=== PATIENT | male | born 2000 | race Caucasian/White ===

== ENCOUNTER 2022-09-21 18:49 | Emergency (ER) | payer OTHER, SELFPAY ==
[2022-09-21 18:50] VITALS: BP 150/118; PULSE 69; RESP 16; TEMP 36.3; O2SAT 99; BMI 22.0
--- NOTE | 2022-09-21 19:45 | US_ITS ---
STUDY: SCROTUM ULTRASOUND REASON FOR EXAM: Male, 22 years old. Injury. Left scrotal pain. TECHNIQUE: Ultrasound evaluation of the scrotum was performed with color Doppler and static todd-scale imaging. COMPARISON: None. FINDINGS: RIGHT TESTICLE INTRATESTICULAR: There is a normal size of the right testicle. The right testicle measures 4.9 x 3.2 x 2.4 cm. There is a homogenous echotexture. There is normal arterial and normal venous vascularity. There is no demonstrated right testicular mass or cyst. EXTRATESTICULAR: The epididymis is normal in size. The epididymis head measures 0.9 x 0.7 x 0.8 cm. There is normal vascularity of the epididymis. There is no demonstrated epididymal cystic structure. There is no demonstrated hydrocele. There is no demonstrated varicocele. There is no demonstrated extratesticular mass or cyst. LEFT TESTICLE INTRATESTICULAR: There is a mild enlargement of the left testicle when compared to the right. The left testicle measures 5.2 x 3.3 x 2.4 cm. There is a homogenous echotexture. There is normal arterial and normal venous vascularity. There is no demonstrated left testicular mass or cyst. EXTRATESTICULAR: The epididymis is normal in size. The epididymis head measures 1.4 x 0.7 x 0.7 cm. There is normal vascularity of the epididymis. There is no demonstrated epididymal cystic structure. There is a small hydrocele containing debris. There is no demonstrated varicocele. There is no demonstrated extratesticular mass or cyst. US/Testicular with Arterial Flow IMPRESSION: 1. Minimal asymmetry in testicular size without abnormality. 2. Small left hydrocele Electronically Signed: Jaden Dwyer DO at 20:45 EDT Reading Location ID and State: [id number] Tel [phone], Service support ,
--- NOTE | 2022-09-21 19:46 | EX.ED.GUMALE ---
HPI History of Present Illness Chief Complaint: Male Pain/Injury Informant: patient Pain Onset: Month(s) (1) Context: Gradual Onset (L testicle after injury) Timing: Continuous Current Severity: Moderate Maximum Severity: Severe Worsened by: palpation, walking Relieved by: rest Penile Discharge Genital Discharge Amount: None Urinary Symptoms Genitourinary Symptoms: No Symptoms Narrative Narrative: Patient presenting with left testicular pain, at first he did not associated with an injury but remember that soon before the pain, he sustained an injury to his groin during [employer]. The pain has continued to worsen. He denies any trouble urinating or penile pain. The pain radiates up his left lower abdomen a little. Denies any fevers or other symptoms/injuries. He went to urgent care prior and was referred here to the ER. PFSH PFSH Home Medications hydrocodone 7.5 mg-acetaminophen 500 mg/15 mL (15 mL) oral solution 15 ml PO Q6H PRN PRN pain 7 days 09/19/13 [Rx Last Taken Unknown] Allergy/AdvReac Type Severity Reaction Status Date / Time No Known Allergies Allergy Verified 09/21/22 18:52 Social History Smoking Status: Never smoker ROS ROS ED Constitutional Constitutional ED: Denies chills or fever(s) Eyes Eyes: Denies change in vision or diplopia ENT ENT ED: Denies rhinorrhea or sore throat Cardiovascular Cardiovascular: Denies chest pain or palpitations Respiratory/Chest Respiratory/Chest: Denies cough or dyspnea Gastrointestinal Gastrointestinal: Denies abdominal pain, diarrhea, nausea or vomiting Genitourinary Genitourinary ED: Reports scrotal pain; Denies dysuria or hematuria Musculoskeletal Musculoskeletal: Denies back pain or neck pain Integumentary Denies abscess or rash Neurologic Neurologic: Denies headache(s), paresthesias or weakness Psychiatric Psychiatric: Denies anxiety or suicidal thoughts EXAM Physical Exam Const Vital Signs: 09/21/22 18:50 Temperature 97.4 F L Temperature Source Temporal Pulse Rate 69 Respiratory Rate 16 Blood Pressure 150/118 H Blood Pressure Mean 128 Pulse Ox 99 Oxygen Delivery Method Room Air Positive well nourished and well developed General Appearance ED: well developed and NAD HEENT Reports moist mucous membranes normocephalic and atraumatic Eyes PERRL and EOMs intact bilaterally Neck full ROM and supple Resp normal respiratory effort GI non-tender and non-distended Auscultation: normoactive bowel sounds Palpation: soft Narrative: Normal circumcised penis. No hernias evaluated by standing. Tender left testicle at the superior pole, the epididymus is nontender. There is no erythema or significant scrotal edema. The right testicle and scrotum are nontender. Cremasterics intact. Back/Spine General Back: other FROM Extremity normal to inspection General Extremety ED: Negative for edema General Extremity: Negative for edema Neuro oriented x3, CN's II-XII intact bilaterally and no sensory deficits noted Sensorium / Orientation: awake and alert Motor Exam: strength 5/5 throughout Skin no rashes or lesions noted and no wounds MDM MDM MDM Narrative Medical decision making narrative: Ultrasound of the scrotum was obtained and shows no signs of any obvious scrotal or testicular injury. There is a small left hydrocele with some debris in it, it is hard to know if or how this is related to the patient's pain since he has been having discomfort for 1 month and the injury happened that long ago. If his symptoms do not resolve, I would follow-up with urology but there is nothing here to treat with antibiotics or surgery at this time. Radiography Diagnostic Testing: Clinical Impression(s) from Imaging Studies Testicular Ultrasound 09/21/22 19:45 IMPRESSION: 1. Minimal asymmetry in testicular size without abnormality. 2. Small left hydrocele Electronically Signed: Jaden Dwyer DO at 20:45 EDT Reading Location ID and State: [address] [place] [address] Tel [phone], Service support , Discharge Plan Triage Chief Complaint: Male Pain/Injury ED Provider: Sacha Ash Dx/Rx/DC Orders Clinical Impression: Contusion of scrotum, Left hydrocele Instructions: ED Hydrocele Non-Communicating Type, ED Contusion, Testicles or Scrotum Prescriptions: No Action hydrocodone-acetaminophen 15 ML Udc 15 ml PO Q6H PRN PRN (Reason: pain) 7 Days 0RF Primary Care Provider: Care Physician,No Primary Referrals: Juan Francisco Bui MD [Non-Staff] - Maynor Dexter MD [Med Staff - Active Staff] - (2-3 weeks if not improving with ibuprofen/ice as needed) Disposition Disposition: Home, Self Care
[2022-09-21 20:59] VITALS: BP 141/94; PULSE 80; RESP 17; O2SAT 99
== END 2022-09-21 21:00 | disposition home or self-care (01) ==
PROVIDERS: Emergency Provider Emergency Medicine; Visit Provider Emergency Medicine
DX: S30.22XA Contusion of scrotum and testes, initial encounter (principal); N43.3 Hydrocele, unspecified; N50.812 Left testicular pain; Y93.75 Activity, martial arts
CPT/HCPCS: 76870; 93976; 99282

== ENCOUNTER 2023-09-01 07:34 | Emergency (ER) | payer SELFPAY ==
[2023-09-01 07:35] VITALS: BP 166/103; PULSE 83; RESP 14; TEMP 36.4; O2SAT 100; BMI 22.1
--- NOTE | 2023-09-01 07:47 | EX.ED.DYSGE1 ---
HPI History of Present Illness Chief Complaint: Abd Pain Informant: patient Narrative Narrative: 22-year-old male presenting to the emergency room with chief complaint of upper abdominal pain. Patient states that yesterday he was having any upper abdominal discomfort that would radiate to his lower abdomen. He went to urgent care and was given a bottle of magnesium citrate out of concern for constipation. He states that he had a bowel movement and patient has been felt better. He ate brisket and macaroni and cheese for dinner and nothing after that. States he felt fine until he went to bed and lay down when he developed a burning sensation in the upper abdomen. It is nonradiating. It is different than the discomfort he felt yesterday. He denies any vomiting. No fever. Denies any recent abdominal trauma. He notes some mild tenderness when he pushes on his upper abdomen. He denies any metallic or bad taste. He denies any hepatic or pancreatic issues in the past. He denies blood in the stool. PFSH PFSH Medical History no medical history no medical history Home Medications hydrocodone 7.5 mg-acetaminophen 500 mg/15 mL (15 mL) oral solution 15 ml PO Q6H PRN PRN pain 7 days 09/19/13 [Rx Last Taken Unknown] Allergy/AdvReac Type Severity Reaction Status Date / Time No Known Allergies Allergy Verified 09/01/23 07:34 Social History (Updated 09/01/23 @ 07:[address] Enrique Love, DO) Smoking Status: Never smoker substance use type: does not use ROS ROS ED Constitutional Constitutional ED: Denies chills, fever(s) or weight loss Eyes Eyes: Denies change in vision or diplopia ENT ENT ED: Denies ear pain, rhinorrhea or sore throat Cardiovascular Cardiovascular: Denies chest pain, orthopnea, palpitations or racing heartbeat Respiratory/Chest Respiratory/Chest: Denies cough, dyspnea or orthopnea Gastrointestinal Gastrointestinal: Reports abdominal pain and constipation; Denies diarrhea, melena, nausea or vomiting Genitourinary Genitourinary ED: Denies dysuria, hematuria or urinary frequency Musculoskeletal Musculoskeletal: Denies arthralgias or myalgias Integumentary Denies abscess or rash Neurologic Neurologic: Denies headache(s) or weakness Psychiatric Psychiatric: Denies anxiety, depression, suicidal ideation or suicidal thoughts Endocrine Endocrinology: Denies polydipsia, polyphagia or polyuria Allergic/Immunologic Allergic/Immunologic ED: Denies mouth swelling, tongue swelling or urticaria EXAM Physical Exam Const Vital Signs: 09/01/23 07:35 Temperature 97.6 F L Temperature Source Temporal Pulse Rate 83 Respiratory Rate 14 Blood Pressure 166/103 H Blood Pressure Mean 124 Pulse Ox 100 Oxygen Delivery Method Room Air Positive well nourished and well developed General Appearance ED: well developed HEENT Reports normocephalic, head/scalp atraumatic and moist mucous membranes Eyes PERRL and EOMs intact bilaterally Neck no lymphadenopathy, supple and no JVD Resp normal respiratory effort and clear to auscultation bilaterally Cardio regular rate, regular rhythm and no murmurs GI Inspection: Negative for abdominal distention Auscultation: normoactive bowel sounds Palpation: soft and tender epigastric Back/Spine no CVA tenderness and normal ROM Extremity normal to inspection General Extremety ED: Negative for edema General Extremity: Negative for edema Neuro oriented x3 and CN's II-XII intact bilaterally Sensorium / Orientation: alert Motor Exam: strength 5/5 throughout Psych mental status grossly normal Mood & Affect: Negative for depressed or tearful Skin no rashes or lesions noted and no wounds MDM MDM MDM Narrative Medical decision making narrative: White blood cell count is normal at 8.6 with a normal differential. Liver enzymes showed a alk phos while in phosphatase at 127. Normal lipase. Normal transaminases and bilirubin levels. At this point I think the patient can be discharged home. He was given a GI cocktail with some improvement. I would have him take some Maalox or Pepto-Bismol in addition to Pepcid over the next couple days. This should be self-limited. If no improvement would follow-up with primary care Lab Data Attestation: I reviewed the patient's lab results. Labs: Laboratory Results - last 24 hr 09/01/23 08:03 WBC 8.6 RBC 4.93 Hgb 15.2 Hct 44.6 MCV 90.5 MCH 30.8 MCHC 34.1 RDW Std Deviation 39.7 RDW Coeff of Srinivas 12.0 Plt Count 267 MPV 10.4 Immature Gran % (Auto) 0.200 Neut % (Auto) 66.4 Lymph % (Auto) 23.8 [place] % (Auto) 7.8 Eos % (Auto) 0.9 Baso % (Auto) 0.9 Absolute Neuts (auto) 5.7 Absolute Lymphs (auto) 2.05 Nucleated RBC % 0 Sodium 138 Potassium 3.9 Chloride 108 H Carbon Dioxide 25.0 Anion Gap 5 BUN 20 H Creatinine 0.87 Estim Creat Clear Calc 126.52 Est GFR (MDRD) Af Amer 143 Est GFR (MDRD) Non-Af 118 BUN/Creatinine Ratio 23.0 H Glucose 99 Calcium 9.2 Total Bilirubin 0.30 Direct Bilirubin 0.11 AST 26 ALT 44 Alkaline Phosphatase 127 H Total Protein 7.8 Albumin 4.4 Globulin 3.4 Lipase 45 Discharge Plan Triage Chief Complaint: Abd Pain ED Provider: Enrique Love Dx/Rx/DC Orders Clinical Impression: Abdominal pain, acute, Gastritis Instructions: ED Gastritis (Adult) Prescriptions: No Action hydrocodone-acetaminophen 15 ML solution 15 ml PO Q6H PRN PRN (Reason: pain) 7 Days 0RF Primary Care Provider: Care Physician,No Primary Referrals: Mariusz Lim MD [Med Staff - Active Staff] - 3-5 Days if not improving Care Physician,No Primary [Primary Care Provider] - Activity Restrictions/Additional Instructions: I would recommend taking [id number] Maalox or Pepto-Bismol as needed. I would also recommend taking Pepcid over the next 3 to 5 days. If worsening or new symptoms please return to emergency Disposition Disposition: Home, Self Care
[2023-09-01] MEDS: Mag Hydrox/Al Hydrox/Simeth 30 ML UDC PO (08:04)
[2023-09-01 08:15] LABS: Absolute Lymphocyte Count 2.05 X10^3/uL (0.83-4.51); Absolute Neutrophil Count 5.7 X10^3/uL (2.0-7.7); Basophil# 0.08 X10^3/uL; Basophil% 0.9 % (0-1); Eosinophil# 0.08 X10^3/uL; Eosinophils% 0.9 % (0-5); Hematocrit 44.6 % (40-54); Hemoglobin 15.2 g/dL (13.0-16.5); Lymphocyte # 2.05 X10^3/ul (0.83-4.51); Lymphocyte % 23.8 % (19-41); Mean Corp Hgb Conc 34.1 g/dL (32-36); Mean Corpuscular Hgb 30.8 pg (27.0-32.0); Mean Corpuscular Volume 90.5 fL (80-94); Mean Platelet Vol. 10.4 fl (6.2-12.0); Monocyte# 0.67 X10^3/uL; Monocyte% 7.8 % (0-10); NRBC Flagged by Analyzer 0 % (0-5); Neutrophil % 66.4 % (47-70); Platelet Count 267 K/mm3 (150-450); RBC Distribution Width SD 39.7 fl (35.1-43.9); Red Blood Count 4.93 M/mm3 (4.6-6.2); White Blood Count 8.6 K/mm3 (4.4-11.0)
[2023-09-01 08:27] LABS: AST(SGOT) 26 U/L (15-37); Alanine Aminotransfer ALT/SGPT 44 U/L (16-61); Albumin, Serum 4.4 g/dL (3.2-5.0); Alkaline Phosphatase 127 U/L (45-117); Anion Gap 5 (5-15); BUN 20 mg/dL (7-18); Bilirubin, Direct 0.11 mg/dL (0.00-0.30); Calcium,Total 9.2 mg/dL (8.5-10.1); Chloride 108 mmol/L (98-107); Creatinine, Serum 0.87 mg/dL (0.70-1.30); EST Glomerular Filtration Rate 118 mL/min (>60); Est Glom Filt Rate - Afr Amer 143 mL/min (>60); Estimated Creatinine Clearance 126.52 ml/min; Globulin 3.4 g/dL (2.2-4.2); Glucose 99 mg/dL (74-106); Lipase 45 U/L (13-75); Potassium 3.9 mmol/L (3.5-5.1); Protein, Total 7.8 g/dL (6.4-8.2); Sodium Level 138 mmol/L (136-145)
== END 2023-09-01 08:53 | disposition home or self-care (01) ==
PROVIDERS: Emergency Provider Emergency Medicine; Visit Provider Emergency Medicine
DX: K29.70 Gastritis, unspecified, without bleeding (principal)
CPT/HCPCS: 80048; 80076; 83690; 85025; 99284; A4216

== ENCOUNTER 2025-01-21 12:50 | Emergency (ER) | payer OTHER, SELFPAY ==
[2025-01-21 12:52] VITALS: BP 166/99; PULSE 87; RESP 16; TEMP 36.6; O2SAT 99; BMI 25.7
--- NOTE | 2025-01-21 13:19 | EDS_ITS ---
HPI History of Present Illness Chief Complaint: Upper Extremity Injury Informant: patient Narrative Narrative: Patient is a [id number] male presenting with injury to his left fourth finger. This is work-related injury. patient was helping a coworker change the belt on the kaden. He went to turn off the machine and put his left hand on the lug which he normally does to turn off the kaden when his glove got pulled into the machine with his hand. He had injury to left fourth finger. The bone is exposed at the proximal interphalangeal joint. Came in for further evaluation. He can still feel the tip of his finger but states it feels like it is falling asleep. He cannot move his distal finger. Is complain of significant pain at the site. Did receive 50 mcg of fentanyl and route. Tetanus Immunization: Unknown [facility] Medical History (Updated 01/21/25 @ 16:[address] Lia Vargas, DO) ADHD Home Medications ?Medication ?Instructions ?Recorded ?Last Taken ?Type NK 01/21/25 Unknown History Allergy/AdvReac Type Severity Reaction Status Date / Time No Known Allergies Allergy Verified 01/21/25 12:55 Surgical History (Updated 01/21/25 @ 12:57 by Kacie Perdomo) S/P hernia surgery Social History (Updated 01/21/25 @ 12:57 by Kacie Perdomo) household members: none current occupational status: employed Smoking Status: Never smoker substance use type: does not use ROS ROS ED Constitutional Constitutional ED: Denies chills or fever(s) Musculoskeletal Musculoskeletal: Reports other Details: left ring finger pain/deformity Integumentary Reports other Details: wound to left ring finger Neurologic Neurologic: Reports paresthesias LUE (tip of left ring finger ); Denies weakness Hematologic/Lymphatic Hematologic/Lymphatic: Denies easy bleeding or easy bruising EXAM Physical Exam Const Vital Signs: 01/21/25 12:52 Temperature 97.9 F Temperature Source Oral Pulse Rate 87 Respiratory Rate 16 Blood Pressure 166/99 H Blood Pressure Mean 121 Pulse Ox 99 Oxygen Delivery Method Room Air Positive well nourished and well developed General Appearance ED: well developed and NAD HEENT Reports moist mucous membranes normocephalic and atraumatic Chest Wall inspection of chest normal Resp normal respiratory effort and clear to auscultation bilaterally Extremity Extremity Narrative: Deformity of the left ring finger. There is open dislocation of the left finger at the proximal interphalangeal joint. Range of motion distally is reduced. Neuro oriented x3, moves all extremities, no focal motor deficits and no sensory deficits noted Neuro Narrative: Sensation intact to light touch at the distal aspect of the finger but he does report paresthesias. Sensorium / Orientation: alert Psych mental status grossly normal Skin Skin Narrative: Approximately 2 cm thickness laceration with bone protruding through it of the dorsal aspect of the left ring finger along the PIP line MDM MDM MDM Narrative Medical decision making narrative: Patient evaluated for trauma to the left fourth finger. He has an open dislocation of the distal aspect of the proximal phalanges of that finger. Received fentanyl en route and given additional morphine for pain control. Wet-to-dry placed on the open wound. I did discuss with plastic surgery, Dr. Cruz, who is not on-call but is able to provide recommendations. He does recommend the patient be transferred for trauma/hand evaluation and suspect that it will require intraoperative reduction and washout. I spoke with Dr. De Jesus at [facility]. He accepts the patient. Recommends irrigating the wound and covered in a wet-to-dry. Bedside reduction not performed because of concern of increasing risk of infection. Patient given 2 g Ancef in the emergency room. Tetanus is updated. Digital nerve block with bupivacaine applied for further pain control. Patient is much more comfortable after this. This was communicated to excepting surgeon. Discharge Plan Triage Chief Complaint: Upper Extremity Injury ED Provider: Lia Vargas Dx/Rx/DC Orders Clinical Impression: Open dislocation of right ring finger Prescriptions: No Action NK Primary Care Provider: Care Physician,No Primary Referrals: Care Physician,No Primary [Primary Care Provider] - Print Language: Filipino Disposition Disposition: Acute Care Hospital Discharge Location: [facility] Discharge Date/Time: 01/21/25 16:37
[2025-01-21] MEDS: morphine 8 MG/ML Syringe 6 MG IV (13:30)
[2025-01-21] MEDS: Diphth,Pertuss(Acell),Tet Vac 0.5 ML Vial IM (13:31)
--- NOTE | 2025-01-21 13:40 | RAD_ITS ---
PROCEDURE: LEFT RING (4TH) CLOSED FINGER REASON FOR EXAM: INJURY FINGER GOT CAUGHT IN SANDING WHEEL. TECHNIQUE: 3 view(s) of the 4th finger. COMPARISON: None FINDINGS: No visible fracture. Dorsomedial dislocation of the middle phalanx, 4th finger. Soft tissue swelling surrounds the 4th finger. RAD/Finger(s) Min 2 Views IMPRESSION: Dorsomedial dislocation of the middle phalanx of the 4th finger with soft tissu e swelling. No associated fractures are demonstrated. Reading Location: [facility]
[2025-01-21] MEDS: Cefazolin 2 GM in Syringe IV (14:22)
[2025-01-21 16:00] VITALS: BP 135/76; PULSE 85; RESP 18; O2SAT 96
[2025-01-21 16:28] VITALS: BP 135/76; PULSE 85; RESP 18; TEMP 36.7; O2SAT 96
[2025-01-21] MEDS: Morphine 4 MG/ML Syringe IV (16:34)
--- NOTE | 2025-01-21 16:36 | ED.RN ---
This RN called report to [facility].
== END 2025-01-21 16:37 | disposition short-term general hospital (02) ==
LOC: ED 14:05
PROVIDERS: Emergency Provider Emergency Medicine; Referring Provider Emergency Medicine; Visit Provider Emergency Medicine
DX: S63.259A Unspecified dislocation of unspecified finger, initial encounter (principal); W31.2XXA Contact with powered woodworking and forming machines, initial encounter; Y99.0 Civilian activity done for income or pay; Z23 Encounter for immunization
CPT/HCPCS: 73140; 90715; 96365; 96375; 99285

== ENCOUNTER 2025-05-11 03:48 | Emergency (ER) | payer SELFPAY ==
[2025-05-11 03:50] VITALS: BP 155/101; PULSE 76; RESP 16; TEMP 36.8; O2SAT 98; BMI 24.5
--- NOTE | 2025-05-11 04:06 | RAD_ITS ---
PROCEDURE: CHEST PA AND LATERAL 05/11/2025 REASON FOR EXAM: CHEST PAIN, RIGHT SIDE TECHNIQUE: Frontal and lateral views of the chest. COMPARISON: None. FINDINGS: The lungs are expanded. There is no demonstrated parenchymal abnormality. There is no demonstrated pleural abnormality. Normal heart and pericardium. Normal mediastinum and nathalie. Normal visualized pulmonary arteries. Normal visualized aortic arch and descending thoracic aorta. Normal visualized thoracic spine. Normal visualized ribs, clavicles, and shoulders. There is no demonstrated abnormality of the visualized soft tissue structures of the upper abdomen. RAD/Chest PA and Lateral IMPRESSION: No radiographic evidence of an acute abnormality. Reading [facility]
--- NOTE | 2025-05-11 04:06 | EKG12_ITS ---
Test Reason : CP Blood Pressure : */* mmHG Vent. Rate : 62 BPM Atrial Rate : 62 BPM P-R Int : 136 ms QRS Dur : 94 ms QT Int : 376 ms P-R-T Axes : 49 72 37 degrees QTcB Int : 381 ms Normal sinus rhythm with sinus arrhythmia Early repolarization Normal ECG Confirmed by Raf Arellano ([id number]), desk editor KENTON ANGEL ([id number]) on 05/13/2025 6:14:12 AM Referred By: TB Confirmed By: Raf Arellano
[2025-05-11 04:20] LABS: Absolute Lymphocyte Count 2.84 X10^3/uL (0.83-4.51); Absolute Neutrophil Count 4.3 X10^3/uL (2.0-7.7); Basophil# 0.05 X10^3/uL; Basophil% 0.6 % (0-1); Eosinophil# 0.09 X10^3/uL; Eosinophils% 1.1 % (0-5); Hematocrit 39.6 % (40-54); Hemoglobin 13.9 g/dL (13.0-16.5); Lymphocyte # 2.84 X10^3/ul (0.83-4.51); Lymphocyte % 35.5 % (19-41); Mean Corp Hgb Conc 35.1 g/dL (32-36); Mean Corpuscular Hgb 30.1 pg (27.0-32.0); Mean Corpuscular Volume 85.7 fL (80-94); Mean Platelet Vol. 10.5 fl (6.2-12.0); Monocyte# 0.69 X10^3/uL; Monocyte% 8.6 % (0-10); NRBC Flagged by Analyzer 0 % (0-5); Neutrophil % 53.8 % (47-70); Platelet Count 227 K/mm3 (150-450); RBC Distribution Width CV 12.1 % (11.6-14.6); RBC Distribution Width SD 37.3 fl (35.1-43.9); Red Blood Count 4.62 M/mm3 (4.6-6.2)
--- OUTSIDE RECORDS SUMMARY | 2025-05-11 04:46 | XMS RPT_ITS | CCD ---
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 Name Role Phone Unavailable Primary Care Provider UnavailTAVO Mcintyre Referring Unavailable ZACHARY VERONICA Attending Unavailable ZHANG MCDANIEL Unavailable Tavo Vargas Referring Unavailable Tavo Vargas Attending Unavailable Care Physician, No Primary Primary Care Unava ilable Medications Current Medications Medication Drug Class(es) Dates Sig (Normalized) Sig (Original) Acetaminophen / HYDROcodone (2 sources) Opioid Agonist Start: 09-19-2013 take 1 mL by mouth every six hours as needed Hydrocodone-Acet aminophen Active 15 ML PO EVERY 6 HOURS NEEDED September 19, 2013 6:09pm cephalexin 500 mg oral capsule (2 sources) Cephalosporin Antibacterial Start: 01-21-2025 End: 01-31-2025 take 1 capsule by mouth four times daily cephalexin (Keflex) 500 MG capsule Take 1 capsule (500 mg) by mouth 4 times daily for 10 days. 40 capsule 01/21/2025 01/31/2025 Active Completed/Discontinued Medications Medication Drug Class(es) Dates Sig (Normalized) Sig (Original) acetaminophen 325 mg / oxyCODONE hydrochloride 5 mg oral tablet (4 sources) Opioid Agonist Start: 01-21-2025 End: 01-21-2025 2 tablet, Oral, Once, On Mayra 01/21/25 at 2115, For 1 dose, Maximum dose of acetaminophen is 4000 mg from all sources in 24 hours. Start: 01-21-2025 End: 01-21-2025 2 tablet, Oral, Once, On Mayra 01/21/25 at 2115, For 1 dose, Maximum dose of acetaminophen is 4000 mg from all sources in 24 hours. Start: 01-21-2025 End: 01-24-2025 take 1 tablet by mouth every six hours as needed for pain oxyCODONE-acetaminophen (Percocet) 5-325 MG tablet Indications: Open dislocation of finger, initial encounter Take 1 tablet by mouth every 6 hours as needed for severe pain (7-10) for up to 3 days. 12 tablet 01/21/2025 01/24/2025 Active bacitracin 0.5 unt/mg topical ointment (2 sources) Start: 01-21-2025 End: 01-21-2025 apply 1 dose topically three times daily Topical, 3 times daily, First dose on Mayra 01/21/25 at 2100 ceFAZolin 2000 mg injection (2 sources) Cephalosporin Antibacterial Start: 01-21-2025 End: 01-21-2025 take 2000 mg intravenously every eight hours 2,000 mg, IntraVENous, Administer over 30 Minutes, Every 8 hours, First dose on Mayra 01/21/25 at 2000, premix bag, Suspected Indication (Select all that apply): Other, Other Abx Indication: open PIP dislocation 10 ml lidocaine hydrochloride 10 mg/ml injection (2 sources) Antiarrhythmic, Amide Local Anesthetic Start: 01-21-2025 End: 01-21-2025 20 mL, Injection, Once, On Mayra 01/21/25 at 1850, For 1 dose, Deliver to bedside for procedure Problems Problem Classification Problem Date Documented Da te Episodic/Chronic Abdominal pain (1 source) Acute abdominal pain; Translations: [Unspecified abdominal pain] 09-01-2023 Episodic Gastritis and duodenitis (1 source) Gastritis; Translations: [Gastritis, unspecified, without bleeding] 09-01-2023 Episodic Joint disorders and dislocations; trauma-related (4 sources) Open dislocation of finger; Translations: [Unspecified dislocation of unspecified finger, initial encounter] Onset: 01-21-2025 01-21-2025 Episodic Open wounds of extremities (2 sources) Unspecified open wound of unspecified finger without damage to nail, initial encounter; Translations: [Unspecified open wound of unspecified finger without damage to nail, initial encounter] Onset: 01-21-2025 Episodic Other connective tissue disease (1 source) Pain in left finger(s); Translations: [Pain in left finger(s)] Onset: 02-10-2025 Episodic Other male genital disorders (2 sources) Disorder of reproductive system; Translations: [Hydrocele, unspecified] 09-29-2022 Episodic Superficial injury; contusion (2 sources) Contusion of scrotum; Translations: [Contusion of scrotum and testes, initial encounter] 09-29-2022 Episodic Results Test Name Value Interpretation Reference Range Facility Consulton 01-21-2025 Consult Ortho Consult Patient: Juanjo Durham Date of : 2000 Acct: [id number] PCP: No primary care provider on file. Date of Admission: 01/21/2025 Date of Service: Pt seen/examined on 01/21/2025 Chief Complaint: left hand injury History Of Present Illness: This is a 24 y.o. left hand dominant male who presents with a left hand injury which he acquired today at work around noon. Patient states he works [employer]. He endorses a traction mechanism of injury. He initially presented to [facility] where he received a digital block around 3pm. Patient states that prior to this, he was having numbness and tingling in his ring finger similar to carpal tunnel symptoms that he experiences in his right hand. Initial ortho eval occurred around 8pm. Endorses ring and long finger pain. Endorses history of nonoperative right forearm fracture. Denies alcohol, tobacco, and recreational drug use. Patient ambulation status: no difficulty. Antiplatelets/Antico agulation includes: none. 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 Past Surgical History: No past surgical history on file. Home Medications: Prior to Admission medications Not on File Current Hospital Medications: No current facility-administere d medications for this encounter. No current outpatient medications on file. Allergies: Patient has no known allergies. Social History: Social History Socioeconomic History Marital status: Not on file Spouse name: Not on file Number of children: Not on file Years of education: Not on file Highest education level: Not on file Occupational History Not on file Tobacco Use Smoking status: Not on file Smokeless tobacco: Not on file Substance and Sexual Activity Alcohol use: Not on file Drug use: Not on file Sexual activity: Not on file Other Topics Concern Not on file Social History Narrative Not on file Social Drivers of Health Financial Resource Strain: Not on file Food Insecurity: Not on file Transportation Needs: Not on file Physical Activity: Not on file Stress: Not on file Social Connections: Not on file Intimate Partner Violence: Not on file Housing Stability: Not on file Family History: No family history on file. Further Family History is noncontributory to this injury. REVIEW OF SYSTEMS: Review of Systems - General ROS: negative for - chills, fatigue, fever, malaise or night sweats Psychological ROS: negative Ophthalmic ROS: negative ENT ROS: negative for - headaches or sore throat Hematological and Lymphatic ROS: negative for - bleeding problems or blood clots Respiratory ROS: no cough, shortness of breath, or wheezing Cardiovascular ROS: no chest pain or dyspnea on exertion Gastrointestinal ROS: negative Musculoskeletal ROS: See HPI Neurological ROS: negative for - bowel and bladder control changes, gait disturbance or numbness/tingling All other systems reviewed and are negative PHYSICAL EXAM: BP 135/85 Pulse 84 Resp 16 SpO2 96% GENERAL APPEARANCE: Awake and oriented x4. No acute distress, except appropriate to injury. MOOD AND AFFECT: Calm appropriate to situation GAIT AND STATION: Patient is in bed and able to ambulate COORDINATION and BALANCE: Patient is grossly coordinated Lymphadenopathy: none on examination of the affected extremity(s) Right Upper Extremity: -No obvious pain or deformity to inspection with normal joint range of motion, stability, and muscle strength except noted below -No TTP over clavicle, shoulder, humerus, elbow, forearm, wrist, hand, or fingers -TTP: nontender throughout extremity -Radial pulse palpable -SILT in radial/median/ ulnar nerve distributions -Motor + AIN/PIN/ulnar nerve functions -No Lymphedema -Skin intact except where noted below -Painless pROM at shoulder/elbow/wrist 2-point discrimination (mm) RIGHT Hand Thumb Index Long Ring Small r u r u r u r u r u 5 5 5 5 5 5 5 5 5 5 Median Ulnar Atraumatic Left Upper Extremity: -No obvious pain or deformity to inspection with normal joint range of motion, stability, and muscle strength except noted below -No TTP over clavicle, shoulder, humerus, elbow, forearm, wrist, hand -TTP: Fingers -Radial pulse palpable -SILT in radial/median/ ulnar nerve distributions -Motor + AIN/PIN/ulnar nerve functions -No Lymphedema -Skin intact except where noted below -Painless pROM at shoulder/elbow/wrist 2-point discrimination (mm) LEFT Hand Thumb Index Long Ring Small r u r u r u r u r u 5 5 5 5 5 5 absent absent 5 5 Median Ulnar Obvious deformity of the ring finger with 1cm open wound over the volar ulnar PIP joint. The P1 head is visible protruding through this wound. There is no gross contamination. Brisk capillary refill. There is dense numbness throughout the ring finger with absent 2 point sensation. There is swelling about the long (more content not included)... Normal [facility] ED Provider Noteon ED Provider Note EMERGENCY DEPARTMENT ENCOUNTER Pt Name: Juanjo Durham Birthdate 2000 Date of evaluation: 01/21/2025 ED Provider: Zachary Veronica DO CHIEF COMPLAINT Chief Complaint Patient presents with Finger Laceration Pt got hand caught in sand almond grinder and has finger injury to has injury to left ring finger. Pt was seen at [facility] and sent in for care. HISTORY OF PRESENT ILLNESS (Location/Symptom, Timing/Onset, Context/Setting, Quality, Duration, Modifying Factors, Severity) Note limiting factors. I wore appropriate PPE for the entirety of this encounter. HPI Juanjo Durham is a 24 y.o. male who presents to the emergency department open finger dislocation left fourth digit. 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 Initially presented to [facility] who performed x-ray, gave tetanus Ancef and performed a digital nerve block, spoke with Dr. Mcdaniel with Ortho hand who recommended ED to ED transfer. Nursing Notes were reviewed. REVIEW OF SYSTEMS 14 systems reviewed and otherwise acutely negative except as in the [place]. PAST MEDICAL HISTORY No past medical history on file. SURGICAL HISTORY No past surgical history on file. CURRENT MEDICATIONS Discharge Medication List as of 01/21/2025 9:11 PM ALLERGIES Patient has no known allergies. FAMILY HISTORY No family history on file. SOCIAL HISTORY Social History Socioeconomic History Marital status: Single SCREENINGS Umesh Coma Scale Best Eye Response: Spontaneous Best Verbal Response: Oriented Best Motor Response: Follows commands Umesh Coma Scale Score: 15 PHYSICAL EXAM ED Triage Vitals [01/21/25 1803] Temp Heart Rate Resp BP -- 84 16 135/85 SpO2 Temp src Heart Rate Source Patient Position (!) 86 % -- -- -- BP Location FiO2 (%) -- -- CONSTITUTIONAL: AOx4, no apparent distress, appears stated age HEAD: normocephalic, atraumatic EYES: PERRL, EOMI ENT: moist mucous membranes, uvula midline NECK: supple, symmetric BACK: symmetric LUNGS: clear to auscultation bilaterally CARDIOVASCULAR: regular rate and rhythm ABDOMEN: soft, non-tender, non-distended with normal active bowel sounds : deferred NEUROLOGIC: MAEx4, no focal sensory or motor deficits MUSCULOSKELETAL: no clubbing, cyanosis or edema, open dislocation of the left fourth digit PIP joint. Capillary refills intact distally. No sensation however as he received a digital nerve block in the outlying facility, Media Information Document Information SKIN: no exposed rash DIAGNOSTIC RESULTS Procedures/EKG: EKG was reviewed by myself. Physician EKG interpretation can be found in [facility] RADIOLOGY (Per Emergency Physician): Interpretation per the Radiologist below, if available at the time of this note: FL guidance non-resultable joint reduction Final Result XR hand 3+ views left Final Result 1. The fourth finger is dorsally dislocated at the PIP joint level; the middle phalanx base is located along the dorsum of the proximal metacarpal neck. 2. Punctate ossific avulsion along the volar aspect of the third finger PIP joint, of an uncertain chronicity and donor site. Report Dictated on Electronically Signed By: Monroe Hernandez MD Electronically Signed Date/Time: 01/21/2025 6:45 PM EST ED BEDSIDE ULTRASOUND: Performed by ED Physician - none LABS: Labs Reviewed - No data to display All other labs were within normal range or not returned as of this dictation. EMERGENCY DEPARTMENT COURSE and DIFFERENTIAL DIAGNOSIS/MDM: Vitals: Vitals: 01/21/25180201/21/25181201/21/25200401/21/252121 BP: 135/85 127/70 120/78 BP Location: Right arm Patient Position: Sitting Pulse: 84 78 75 Resp: 16 16 16 SpO2: (!) 86% 96% 97% 100% EMERGENCY DEPARTMENT COURSE and DIFFERENTIAL DIAGNOSIS/MDM: Vitals: Vitals: 01/21/25180201/21/25181201/21/25200401/21/252121 BP: 135/85 127/70 120/78 BP Location: Right arm Patient Position: Sitting Pulse: 84 78 75 Resp: 16 16 16 SpO2: (!) 86% 96% 97% 100% The patient presented with a chief complaint of left fourth digit open dislocation. Did not send a disc so x-rays were repeated and orthopedic hand surgery was consulted.. The differential diagnosis associated with this patient's presentation includes left fourth digit open dislocation. Our workup consisted of ordering/reviewing x-ray which again confirmed the open dislocation, questionable third digit fracture as well. Plastic surgery reduced and closed at bedside, recommended Keflex pain control and outpatient follow-up with Dr. Mcdaniel tomorrow.. Diagnoses as of 01/21/252128 Open dislocation of finger, initial encounter Diagnostic tests considered but not performed: External records reviewed: Diagnostics interpreted by me: Xray(s) open dislocation of the left fourth digit, questionable av (more content not included)... Normal [facility] Emergency Department Summary on 01-21-2025 Emergency Department Summary [facility] Medical Records Department [address] [place] [address] Emergency Department Summary 01/21/25 MR#: [id number] Acct: [id number] Name: JUANJO DURHAM Rep #: [id number] : 2000 24 From: Tavo Vargas DO PCP: Care Physician,No Primary Status:DEP ER Location: ED HPI History of Present Illness Chief Complaint: Upper Extremity Injury Informant: patient Narrative Narrative: Patient is a [id number] male presenting with injury to his left fourth finger. This is work-related injury. patient was helping a coworker change the belt on the kaden. He went to turn off the machine and put his left hand on the lug which he normally does to turn off the kaden when his glove got pulled into the machine with his hand. He had injury to left fourth finger. The bone is exposed at the proximal interphalangeal joint. Came in for further evaluation. He can still feel the tip of his finger but states it feels like it is falling asleep. He cannot move his distal finger. Is complain of significant pain at the site. Did receive 50 mcg of fentanyl and route. Tetanus Immunization: Unknown [facility] Medical History (Updated 01/21/25 @ 16:[address] Tavo Vargas, DO) ADHD Home Medications ???Medication ???Instructions ???Recorded ???Last Taken ???Type NK 01/21/25 Unknown History Allergy/AdvReac Type Severity Reaction Status Date / Time No Known Allergies Allergy Verified 01/21/25 12:55 Surgical History (Updated 01/21/25 @ 12:57 by Kacie Perdomo) S/P hernia surgery Social History (Updated 01/21/25 @ 12:57 by Kacie Perdomo) household members: none current occupational status: employed Smoking Status: Never smoker substance use type: does not use ROS ROS ED Constitutional Constitutional ED: Denies chills or fever(s) Musculoskeletal Musculoskeletal: Reports other Details: left ring finger pain/deformity Integumentary Reports other Details: wound to left ring finger Neurologic Neurologic: Reports paresthesias LUE (tip of left ring finger ); Denies weakness Hematologic/Lymphati c Hematologic/Lymphati c: Denies easy bleeding or easy bruising EXAM Physical Exam Const Vital Signs: 01/21/25 12:52 Temperature 97.9 F Temperature Source Oral Pulse Rate 87 Respiratory Rate 16 Blood Pressure 166/99 H Blood Pressure Mean 121 Pulse Ox 99 Oxygen Delivery Method Room Air Positive well nourished and well developed General Appearance ED: well developed and NAD HEENT Reports moist mucous membranes normocephalic and atraumatic Chest Wall inspection of chest normal Resp normal respiratory effort and clear to auscultation bilaterally Extremity Extremity Narrative: Deformity of the left ring finger. There is open dislocation of the left finger at the proximal interphalangeal joint. Range of motion distally is reduced. Neuro oriented x3, moves all extremities, no focal motor deficits and no sensory deficits noted Neuro Narrative: Sensation intact to light touch at the distal aspect of the finger but he does report paresthesias. Sensorium / Orientation: alert Psych mental status grossly normal Skin Skin Narrative: Approximately 2 cm thickness laceration with bone protruding through it of the dorsal aspect of the left ring finger along the PIP line MDM MDM MDM Narrative Medical decision making narrative: Patient evaluated for trauma to the left fourth finger. He has an open dislocation of the distal aspect of the proximal phalanges of that finger. Received fentanyl en route and given additional morphine for pain control. Wet-to-dry placed on the open wound. I did discuss with plastic surgery, Dr. Cruz, who is not on-call but is able to provide recommendations. He does recommend the patient be transferred for trauma/hand evaluation and suspect that it will require intraoperative reduction and washout. I spoke with Dr. De Jesus at [facility]. He accepts the patient. Recommends irrigating the wound and covered in a wet-to-dry. Bedside reduction not performed because of concern of increasing risk of infection. Patient given 2 g Ancef in the emergency room. Tetanus is updated. Digital nerve block with bupivacaine applied for further pain control. Patient is much more comfortable after this. This was communicated to excepting surgeon. Discharge Plan Triage Chief Complaint: Upper Extremity Injury ED Provider: Tavo Vargas Dx/Rx/DC Orders Clinical Impression: Open dislocation of right ring finger Prescriptions: No Action NK Primary Care Provider: Care Physician,No Primary Referrals: Care Physician,No Primary [Primary Care Provider] - Print Language: Belarusian Disposition Disposition: Acute Care Hospital Discharge Location: (more content not included)... Normal [facility] Finger(s) Min 2 Viewson 01-03 0 Finger(s) Min 2 Views [facility] Imaging Services [address] [place], [place] [address] (198) Finger(s) Min 2 Views MR#: [id number] Acct: [id number] Name: JUANJO DURHAM Rep #: [id number] : 2000 M 24 From: Fredy Sanchez MD PCP: Care Physician,No Primary Status: REG ER Study: Finger(s) Min 2 Views Date of Exam: 01/21/25 Exam# [id number] Ordering Dr: Tavo Vargas DO PROCEDURE: LEFT RING (4TH) CLOSED FINGER REASON FOR EXAM: INJURY FINGER GOT CAUGHT IN SANDING WHEEL. TECHNIQUE: 3 view(s) of the 4th finger. COMPARISON: None FINDINGS: No visible fracture. Dorsomedial dislocation of the middle phalanx, 4th finger. Soft tissue swelling surrounds the 4th finger. RAD/Finger(s) Min 2 Views IMPRESSION: Dorsomedial dislocation of the middle phalanx of the 4th finger with soft tissue swelling. No associated fractures are demonstrated. Reading Location: [facility] CC: Dr. 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 The fourth finger is dorsally dislocated at the PIP joint level; the middle phalanx base is located along the dorsum of the proximal metacarpal neck. 2. Punctate ossific avulsion along the volar aspect of the third finger PIP joint, of an uncertain chronicity and donor site. Report Dictated on Electronically Signed By: Monroe Hernandez MD Electronically Signed Date/Time: 01/21/2025 6:45 PM EST [facility] Patient Name: JUANJO [facility]URHAM [facility] 2000 [id number] Exam Date/Time: 01/21/2025 18:36 Procedure: XR HAND 3+ VIEWS LEFT Ordering Provider: VERONICA TYLER Reason For Exam: fx/dislocation 4th digit Left hand CLINICAL INDICATION: Pain TECHNIQUE: Three views of the left hand COMPARISON: None FINDINGS: The fourth finger is dorsally dislocated at the PIP joint level; the middle phalanx base is located along the dorsum of the proximal metacarpal neck. Punctate ossific avulsion along the volar aspect of the third finger PIP joint, of an uncertain chronicity and donor site. No additional fracture or subluxation. The remaining bones are in normal anatomic alignment. No radiopaque foreign body is identified. Normal bone mineral density. [facility] Monroe Hernandez MD - 01/21/2025 Patient Name: JUANJO DURHAM : 2000 Exam Date/Time: 01/21/2025 18:36 Procedure: XR HAND 3+ VIEWS LEFT Ordering Provider: VERONICA TYLER Reason For Exam: fx/dislocation 4th digit Left hand CLINICAL INDICATION: Pain TECHNIQUE: Three views of the left hand COMPARISON: None FINDINGS: The fourth finger is dorsally dislocated at the PIP joint level; the middle phalanx base is located along the dorsum of the proximal metacarpal neck. Punctate ossific avulsion along the volar aspect of the third finger PIP joint, of an uncertain chronicity and donor site. No additional fracture or subluxation. The remaining bones are in normal anatomic alignment. No radiopaque foreign body is identified. Normal bone mineral density. IMPRESSION: 1. The fourth finger is dorsally dislocated at the PIP joint level; the middle phalanx base is located along the dorsum of the proximal metacarpal neck. 2. Punctate ossific avulsion along the volar aspect of the third finger PIP joint, of an uncertain chronicity and donor site. Report Dictated on Electronically Signed By: Monroe Hernandez MD Electronically Signed Date/Time: 01/21/2025 6:45 PM EST [facility] Radiology Study observation (narrative) [facility] alth XR Hand - left 3 ViewsOrdere d By: Monroe Hernandez on 01-21-2025 [facility] Work Phone: Absolute lymphocyte countOrd ered By: Enrique Love on 09-01-2023 Lymphocytes Auto (Unsp spec) [#/Vol] 2.05 10*3/uL 0.83-4.51 [facility] Basophil percentageOrdered B y: Enrique Love on 09-01-2023 Basophils/100 WBC (Bld) 0.9 % 0-1 [facility] Bilirubin [Mass/Vol] 0.30 mg/dL 0.20-1.00 [facility] Comment on above: For patients on eltr ombopag therapy, use of Dimension [place] TBIL is not recommended. Chloride [Moles/Vol] 108 mmol/L 98-107 [facility] Eosinophils/100 WBC (Bld) 0.9 % 0-5 [facility] Glucose [Mass/Vol] 99 mg/dL 74-106 [facility] Neutrophils (Bld) [#/Vol] 5.7 10*3/uL 2.0-7.7 [facility] Neutrophils/100 WBC (Bld) 66.4 % 47-70 [facility] Potassium [Moles/Vol] 3.9 mmol/L 3.5-5.1 [facility] Protein [Mass/Vol] 7.8 g/dL 6.4-8.2 [facility] Sodium [Moles/Vol] 138 mmol/L 136-145 [facility] WBC (Bld) [#/Vol] 8.6 10*3/uL 4.4-11.0 [facility] Blood erythrocytes count (nu mber/volume)Ordered By: Enrique Love on 09-01-2023 RBC (Bld) [#/Vol] 4.93 10*6/uL 4.6-6.2 [facility] Blood hemoglobin measurement (mass/volume)Ordered By: Enrique Love on 09-01-2023 Hemoglobin (Bld) [Mass/Vol] 15.2 g/dL 13.0-16.5 [facility] Blood lymphocytes/100 leukoc ytesOrdered By: Enrique Love on 09-01-2023 Lymphocytes/100 WBC (Bld) 23.8 % 19-41 [facility] Blood monocytes/100 leukocyt esOrdered By: Enrique Love on 09-01-2023 Monocytes/100 WBC (Bld) 7.8 % 0-10 [facility] Blood platelet mean volumeOr dered By: Enrique Love on 09-01-2023 Platelet mean volume (Bld) [Entitic vol] 10.4 fL 6.2-12.0 [facility] Determination of erythrocyte mean corpuscular volume (MCV)Ordered By: Enrique Love on 09-01-2023 MCV (RBC) [Entitic vol] 90.5 fL 80-94 [facility] Direct bilirubinOrdered By: Enrique Love on 09-01-2023 Bilirubin.direct [Mass/Vol] 0.11 mg/dL 0.00-0.30 [facility] Hematocrit Auto (Bld) [Volum e fraction]Ordered By: Enrique Love on 09-01-2023 Hematocrit (Bld) [Volume fraction] 44.6 % 40-54 [facility] - Chemistry and C hemistry - challengeOrdered By: Enrique Love on 09-01-2023 ALP [Catalytic activity/Vol] 127 U/L 45-117 [facility] ALT [Catalytic activity/Vol] 44 U/L 16-61 [facility] CO2 [Moles/Vol] 25.0 mmol/L 21.0-32.0 [facility] Globulin (S) [Mass/Vol] 3.4 g/dL 2.2-4.2 [facility] Lipase [Catalytic activity/Vol] 45 U/L 13-75 [facility] Comment on above: Please note:LIPASE r evised reference range effective 23. New Lipase methodology. Expected to produce lower values than the previous assay method. NEW Reference Range: 13 - 75 U/L Urea nitrogen/Creatinine [Mass ratio] 23.0 mg/mg 10-20 [facility] - Hematology and Cell countsOrdered By: Enrique Love on 09-01-2023 Erythrocyte distribution width (RBC) [Entitic vol] 39.7 fL 35.1-43.9 [facility] Erythrocyte distribution width (RBC) [Ratio] 12.0 % 11.6-14.6 [facility] Immature granulocytes/100 WBC (Bld) 0.200 % 0.0-0.9 [facility] Comment on above: IG% - Immature Granu locytes (promyelocytes, myelocytes and metamyelocytes) > 1% indicates that a LEFT SHIFT is Present. MCH (RBC) [Entitic mass] 30.8 pg 27.0-32.0 [facility] Nucleated RBC/100 WBC (Bld) [Ratio] 0 % 0-5 [facility] MCHC Auto (RBC) [Mass/Vol]Or dered By: Enrique Love on 09-01-2023 MCHC (RBC) [Mass/Vol] 34.1 g/dL 32-36 [facility] No Panel InformationOrdered By: Enrique Love on 09-01-2023 Estimated Creatinine Clearance Calc 126.52 ml/min [facility] Estimated GFR (MDRD) Amer 143 mL/min >60 [facility] Comment on above: GFR Calc Estimated GFR (MDRD) Non-Af Amer 118 mL/min >60 [facility] Comment on above: Non- GFR Calc Platelets bldOrdered By: Rodolfo Love on 09-01-2023 Platelets (Bld) [#/Vol] 267 10*3/uL 150-450 [facility] Serum or plasma albumin sherri urement (mass/volume)Ordered By: Enrique Love on 09-01-2023 Albumin [Mass/Vol] 4.4 g/dL 3.2-5.0 [facility] Serum or plasma calcium sherri urement (mass/volume)Ordered By: Enrique Love on 09-01-2023 Calcium [Mass/Vol] 9.2 mg/dL 8.5-10.1 [facility] Serum or plasma creatinine m easurement (mass/volume)Ordered By: Enrique Love on 09-01-2023 Creatinine [Mass/Vol] 0.87 mg/dL 0.70-1.30 [facility] Comment on above: The validity of the calculated GFR & GFRAA in patients over 70 years has not been determined. Clinical correlation is essential. Serum or plasma urea nitroge n measurement (mass/volume)Ordered By: Enrique Love on 09-01-2023 Urea nitrogen [Mass/Vol] 20 mg/dL 7-18 [facility] Thin prep Papanicolaou smear with manual screeningOrdered By: Enrique Love on 09-01-2023 Thin prep Papanicolaou smear with manual screening 26 U/L 15-37 [facility] Thin prep Papanicolaou smear with manual screening 5 5-15 [facility] COVID PCR, SCREENING [facility] 05-26-2020 CORONAVIRUS 2019,PCR NOT DETECTED Normal Not Detected [facility] Comment on above: Result Comment: This assay is designed to detect the N, ORF1ab and/or S genes of SARS-CoV-2 via nucleic acid amplification. A Negative (NOT DETECTED) result does not preclude 2019-nCoV infection since the adequacy of sample collection and/or low viral burden may result in presence of viral nucleic acids below the clinical sensitivity of this test method. Negative (NOT DETECTED) result should not be used as the sole basis for treatment or other patient management decisions. Rather negative results should be combined with clinical observations, patient history, and epidemiological information to make patient management decisions. Fact sheet for providers: https://www.fda.gov/media/752354/download Fact sheet for patients: https://www.fda.gov/media/518558/download This test has received FDA Emergency Use Authorization (EUA) and has been verified by [facility]). This test is only authorized for the duration of time that circumstances exist to justify the authorization of the emergency use of in vitro diagnostic tests for the detection of SARS-CoV-2 virus and/or diagnosis of COVID-19 infection under section 564(b)(1) of the Act, 21 U.S.C. 360bbb-3(b)(1), unless the authorization is terminated or revoked sooner. [facility] ([facility]) is certified under CLIA-88 as qualified to perform high complexity testing. This tests analytical performance characteristics have been determined by [facility]. Testing is performed at [facility] is located at [address] [place] [address] (CLIA License #[id number], CAP #[id number]). Performed By: #### C VCLA #### [facility] [address] [place] [address] COVID PCR, SCREENING CONGREG ATEon 05-25-2020 Lab Specimen Source Nasal, Nasopharyngeal Normal [facility] Comment on above: Performed By: #### C VCLA #### [facility] [address] [place] [address] Vital Signs Date Time Vital Sign Value Performing Clinician Faci lity 01-21-2025 21:22-0500 Diastolic blood pressure 78 mm[Hg] CURRENT DO Work Phone: [employer] 01-21-2025 21:22-0500 Heart rate 75 /min [employer] Work Phone: [employer] 01-21-2025 21:22-0500 Respiratory rate 16 /min ZacharyTaboola Work Phone: [employer] 01-21-2025 21:22-0500 SaO2% (BldA) [Mass fraction] 100 % [employer] Work Phone: [employer] 01-21-2025 21:22-0500 Systolic blood pressure 120 mm[Hg] [employer] Work Phone: [employer] 09-01-2023 07:35-0400 Body height 172.72 cm [facility] 09-01-2023 07:35-0400 Body mass index (BMI) [Ratio] 22.1 kg/m2 [facility] 09-01-2023 07:35-0400 Body temperature 97.6 [degF] [facility] 09-01-2023 07:35-0400 Body weight 66.04 kg [facility] 09-01-2023 07:35-0400 Diastolic blood pressure 103 mm[Hg] [facility] 09-01-2023 07:35-0400 Heart rate 83 /min [facility] 09-01-2023 07:35-0400 Respiratory rate 14 /min [facility] 09-01-2023 07:35-0400 SaO2% (BldA) [Mass fraction] 100 % [facility] 09-01-2023 07:35-0400 Systolic blood pressure 166 mm[Hg] [facility] 09-21-2022 20:59-0400 Diastolic blood pressure 94 mm[Hg] [facility] Work Phone: 09-21-2022 20:59-0400 Heart rate 80 /min [facility] Work Phone: 09-21-2022 20:59-0400 Respiratory rate 17 /min [facility] Work Phone: 09-21-2022 20:59-0400 SaO2% (BldA) [Mass fraction] 99 % [facility] Work Phone: 09-21-2022 20:59-0400 Systolic blood pressure 141 mm[Hg] [facility] Work Phone: 09-21-2022 18:50-0400 Body height 172.72 cm [facility] Work Phone: 09-21-2022 18:50-0400 Body mass index (BMI) [Ratio] 22 kg/m2 [facility] Work Phone: 09-21-2022 18:50-0400 Body temperature 97.4 [degF] [facility] Work Phone: 09-21-2022 18:50-0400 Body weight 65.77 kg [facility] Work Phone: Encounters Encounter Date Encounter Type Care Provider Facility Start: 01-21-2025 End: 01-21-2025 Emergency department patient visit Zachary Veronica DO Work Phone: [facility] Comment on above: Open dislocation of finger, initial encounter (Primary Dx) Start: 01-21-2025 End: 01-21-2025 Emergency department patient visit Tavo Vargas Facility:[facility] Start: 09-01-2023 End: 09-01-2023 Emergency department patient visit [facility] Work Phone: Start: 09-21-2022 End: 09-21-2022 Emergency department patient visit [facility] Procedures Date Procedure Procedure Detail Performing Clinician Start: 01-21-2025 RF Less than 1 hour Marielle Liu MD Work Phone: Start: 01-21-2025 Radex hand minimum 3 views Zachary Veronica DO Work Phone: Start: 09-21-2022 Ultrasound of scrotu m with Doppler and color flow imaging Plan of Treatment Date Care Activity Detail Author Start: 2077 RSV Immunization for Adults (1 - 1-dose 75+ series) RSV Immunization for Adults (1 - 1-dose 75+ series) [facility] Start: 2052 Zoster Vaccines (1 of 2) Zoster Vaccines (1 of 2) [facility] Start: 08-02-2024 COVID-19 Vaccine ( season) COVID-19 Vaccine ( season) [facility] Start: 08-02-2024 Influenza vaccination Influenza Vaccine (#1) [facility] Start: 07-22-2024 DTaP/Tdap/Td Vaccines (7 - Td or Tdap) DTaP/Tdap/Td Vaccines (7 - Td or Tdap) [facility] Start: 09-01-2023 [facility] Start: 2020 Hepatitis C screening Hepatitis C Screening [facility] Start: 2015 Varicella vaccination Varicella Vaccines (1 of 2 - 13+ 2-dose series) [facility] Start: 2014 Depression Screening Depression Screening [facility] Start: 2002 HIV screening HIV Screening [facility] Patient Education [facility] Work Phone: Patient referral [facility] Work Phone: Immunizations Immunization Date Immunization Notes Care Provider Dona quiñones 01-10-2012 influenza virus vacc ine, unspecified formulation Zachary Veronica DO Work Phone: [facility] Payers Date Payer Category Payer Self-pay [id number] 2025 Self-pay 2025 Private Health Insurance [id number] [place] [id number] Unknown [facility] [id number] Unknown [facility] [id number] Unknown [id number] Social History Date Type Detail Facility Start: 09-21-2022 End: 09-01-2023 Tobacco smoking status NHIS Unknown if ever smoked [facility] Start: 2002 Sex Assigned At Male [facility] Start: 2002 Sex assigned at Not on file [facility] Start: 01-21-2025 Sex Male (finding) [facility] Gender identity Not on file [facility] Discharge instructions 01-21-2025 Discharge Instructions Note Date & Type Note Facility 01-21-2025 Hospital Discharg e instructions Citlaly Liu MD - 01/21/2025 9:03 PM EST Images from the original note were not included. Orthopaedic Surgery Discharge Instructions: -Remain non weight bearing to your left hand - keep your splint clean, dry, and intact. Do not remove it or get it wet or it will fall apart - Activity as tolerated - Ice to reduce pain and swelling. Do not put ice directly on the skin. -Follow-up outpatient with Dr. Lee mitchellorrow, 01/22. The office contact information is provided in your paperwork. -Take medications as prescribed by the hospital doctors documented in this encounter [facility] Emergency department Note 01-21-2025 Zachary Veronica DO - 01/21/2025 5:40 PM EST Note Date & Type Note Facility 01-21-2025 Emergency departm ent Note Images from the original note were not included. EMERGENCY DEPARTMENT ENCOUNTER Pt Name: Juanjo Durham Birthdate 2000 Date of evaluation: 01/21/2025 ED Provider: Zachary Veronica DO CHIEF COMPLAINT Chief Complaint Patient presents with Finger Laceration Pt got hand caught in sand almond grinder and has finger injury to has injury to left ring finger. Pt was seen at [facility] and sent in for care. HISTORY OF PRESENT ILLNESS (Location/Symptom, Timing/Onset, Context/Setting, Quality, Duration, Modifying Factors, Severity) Note limiting factors. I wore appropriate PPE for the entirety of this encounter. HPI Juanjo Durham is a 24 y.o. male who presents to the emergency department open finger dislocation left fourth digit. 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 Initially presented to [facility] who performed x-ray, gave tetanus Ancef and performed a digital nerve block, spoke with Dr. Mcdaniel with Ortho hand who recommended ED to ED transfer. Nursing Notes were reviewed. REVIEW OF SYSTEMS 14 systems reviewed and otherwise acutely negative except as in the [place]. PAST MEDICAL HISTORY No past medical history on file. SURGICAL HISTORY No past surgical history on file. CURRENT MEDICATIONS Discharge Medication List as of 01/21/2025 9:11 PM ALLERGIES Patient has no known allergies. FAMILY HISTORY No family history on file. SOCIAL HISTORY Social History Socioeconomic History Marital status: Single SCREENINGS Umesh Coma Scale Best Eye Response: Spontaneous Best Verbal Response: Oriented Best Motor Response: Follows commands [place] Coma Scale Score: 15 PHYSICAL EXAM ED Triage Vitals [01/21/25 1803] Temp Heart Rate Resp BP -- 84 16 135/85 SpO2 Temp src Heart Rate Source Patient Position (!) 86 % -- -- -- BP Location FiO2 (%) -- -- CONSTITUTIONAL: AOx4, no apparent distress, appears stated age HEAD: normocephalic, atraumatic EYES: PERRL, EOMI ENT: moist mucous membranes, uvula midline NECK: supple, symmetric BACK: symmetric LUNGS: clear to auscultation bilaterally CARDIOVASCULAR: regular rate and rhythm ABDOMEN: soft, non-tender, non-distended with normal active bowel sounds : deferred NEUROLOGIC: MAEx4, no focal sensory or motor deficits MUSCULOSKELETAL: no clubbing, cyanosis or edema, open dislocation of the left fourth digit PIP joint. Capillary refills intact distally. No sensation however as he received a digital nerve block in the outlying facility, Media Information Document Information SKIN: no exposed rash DIAGNOSTIC RESULTS Procedures/EKG: EKG was reviewed by myself. Physician EKG interpretation can be found in [facility] RADIOLOGY (Per Emergency Physician): Interpretation per the Radiologist below, if available at the time of this note: FL guidance non-resultable joint reduction Final Result XR hand 3+ views left Final Result 1. The fourth finger is dorsally dislocated at the PIP joint level; the middle phalanx base is located along the dorsum of the proximal metacarpal neck. 2. Punctate ossific avulsion along the volar aspect of the third finger PIP joint, of an uncertain chronicity and donor site. Report Dictated on Electronically Signed By: Monroe Hernandez MD Electronically Signed Date/Time: 01/21/2025 6:45 PM EST ED BEDSIDE ULTRASOUND: Performed by ED Physician - none LABS: Labs Reviewed - No data to display All other labs were within normal range or not returned as of this dictation. EMERGENCY DEPARTMENT COURSE and DIFFERENTIAL DIAGNOSIS/MDM: Vitals: Vitals: 01/21/25180201/21/25181201/21/25200401/21/252121 BP: 135/85 127/70 120/78 BP Location: Right arm Patient Position: Sitting Pulse: 84 78 75 Resp: 16 16 16 SpO2: (!) 86% 96% 97% 100% EMERGENCY DEPARTMENT COURSE and DIFFERENTIAL DIAGNOSIS/MDM: Vitals: Vitals: 01/21/25180201/21/25181201/21/25200401/21/252121 BP: 135/85 127/70 120/78 BP Location: Right arm Patient Position: Sitting Pulse: 84 78 75 Resp: 16 16 16 SpO2: (!) 86% 96% 97% 100% The patient presented with a chief complaint of left fourth digit open dislocation. Did not send a disc so x-rays were repeated and orthopedic hand surgery was consulted.. The differential diagnosis associated with this patient's presentation includes left fourth digit open dislocation. Our workup consisted of ordering/reviewing x-ray which again confirmed the open dislocation, questionable third digit fracture as well. Plastic surgery reduced and closed at bedside, recommended Keflex pain control and outpatient follow-up with Dr. Mcdaniel tomorrow.. Diagnoses as of 01/21/252128 Open dislocation of finger, initial encounter Diagnostic tests considered but not performed: External records reviewed: Diagnostics interpreted by me: Xray(s) open dislocation of the left fourth digit, questionable avulsion fracture volar aspect of the third PIP Discussions with other clinicians: Adoption Coordinator orthopedic surgery Chronic conditions impacting care: Social determinants of health affecting care: ED Medications managed: Medications bacitracin ointment ( Topical Given 01/21/252000) ceFAZolin in dextrose 4% (Ancef) IVPB 2,000 mg (0 mg IntraVENous Stopped 01/21/252106) lidocaine (Xylocaine) 1 % injection 20 mL (20 mL Injection Given 01/21/252001) oxyCODONE-acetaminophen (Percocet) 5-325 MG per tablet 2 tablet (2 tablets Oral Given 01/21/252113) CONSULTS: None PROCEDURES: Unless otherwise noted below, none Procedures Patients symptoms are consistent with sepsis, severe sepsis, or septic shock (If yes use .sepsiscoremeasure): FINAL IMPRESSION 1. Open dislocation of finger, initial encounter DISPOSITION/PLAN dc PATIENT REFERRED TO: Zhang Mcdaniel MD [address] [facility] [id number] Follow up Call first thing in the morning on 01/22 to schedule an appointment with Dr. Mcdaniel. DISCHARGE MEDICATIONS: Discharge Medication List as of 01/21/2025 9:11 PM START taking these medications Details cephalexin (Keflex) 500 MG capsule Take 1 capsule (500 mg) by mouth 4 times daily for 10 days., Starting Mayra 01/21/2025, Until 01/31/2025, Normal oxyCODONE-acetaminophen (Percocet) 5-325 MG tablet Take 1 tablet by mouth every 6 hours as needed for severe pain (7-10) for up to 3 days., Starting Mayra 01/21/2025, Until 01/24/2025 at 2359, Normal (Comment: Please note this report has been produced using speech recognition software and may contain errors related to that system including errors in grammar, punctuation, and spelling, as well as words and phrases that may be inappropriate. If there are any questions or concerns please feel free to contact the dictating provider for clarification.) Zachary Veronica DO (electronically signed) Emergency Medicine Provider Zachary Veronica DO 01/21/252128 documented in this encounter [facility] Physician Emergency department Note 01-21-2025 Zachary Veronica DO - 01/21/2025 5:40 PM EST Note Date & Type Note Facility 01-21-2025 Physician Emergen cy department Note Images from the original note were not included. EMERGENCY DEPARTMENT ENCOUNTER Pt Name: Juanjo Durham Birthdate 2000 Date of evaluation: 01/21/2025 ED Provider: Zachary Veronica DO CHIEF COMPLAINT Chief Complaint Patient presents with Finger Laceration Pt got hand caught in sand almond grinder and has finger injury to has injury to left ring finger. Pt was seen [facility] and sent in for care. HISTORY OF PRESENT ILLNESS (Location/Symptom, Timing/Onset, Context/Setting, Quality, Duration, Modifying Factors, Severity) Note limiting factors. I wore appropriate PPE for the entirety of this encounter. HPI Juanjo Durham is a 24 y.o. male who presents to the emergency department open finger dislocation left fourth digit. 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 Initially presented to [facility] who performed x-ray, gave tetanus Ancef and performed a digital nerve block, spoke with Dr. Mcdaniel with Ortho hand who recommended ED to ED transfer. Nursing Notes were reviewed. REVIEW OF SYSTEMS 14 systems reviewed and otherwise acutely negative except as in the [place]. PAST MEDICAL HISTORY No past medical history on file. SURGICAL HISTORY No past surgical history on file. CURRENT MEDICATIONS Discharge Medication List as of 01/21/2025 9:11 PM ALLERGIES Patient has no known allergies. FAMILY HISTORY No family history on file. SOCIAL HISTORY Social History Socioeconomic History Marital status: Single SCREENINGS Umesh Coma Scale Best Eye Response: Spontaneous Best Verbal Response: Oriented Best Motor Response: Follows commands [place] Coma Scale Score: 15 PHYSICAL EXAM ED Triage Vitals [01/21/25 1803] Temp Heart Rate Resp BP -- 84 16 135/85 SpO2 Temp src Heart Rate Source Patient Position (!) 86 % -- -- -- BP Location FiO2 (%) -- -- CONSTITUTIONAL: AOx4, no apparent distress, appears stated age HEAD: normocephalic, atraumatic EYES: PERRL, EOMI ENT: moist mucous membranes, uvula midline NECK: supple, symmetric BACK: symmetric LUNGS: clear to auscultation bilaterally CARDIOVASCULAR: regular rate and rhythm ABDOMEN: soft, non-tender, non-distended with normal active bowel sounds : deferred NEUROLOGIC: MAEx4, no focal sensory or motor deficits MUSCULOSKELETAL: no clubbing, cyanosis or edema, open dislocation of the left fourth digit PIP joint. Capillary refills intact distally. No sensation however as he received a digital nerve block in the outlying facility, Media Information Document Information SKIN: no exposed rash DIAGNOSTIC RESULTS Procedures/EKG: EKG was reviewed by myself. Physician EKG interpretation can be found in [facility] RADIOLOGY (Per Emergency Physician): Interpretation per the Radiologist below, if available at the time of this note: FL guidance non-resultable joint reduction Final Result XR hand 3+ views left Final Result 1. The fourth finger is dorsally dislocated at the PIP joint level; the middle phalanx base is located along the dorsum of the proximal metacarpal neck. 2. Punctate ossific avulsion along the volar aspect of the third finger PIP joint, of an uncertain chronicity and donor site. Report Dictated on Electronically Signed By: Monroe Hernandez MD Electronically Signed Date/Time: 01/21/2025 6:45 PM EST ED BEDSIDE ULTRASOUND: Performed by ED Physician - none LABS: Labs Reviewed - No data to display All other labs were within normal range or not returned as of this dictation. EMERGENCY DEPARTMENT COURSE and DIFFERENTIAL DIAGNOSIS/MDM: Vitals: Vitals: 01/21/25 1803 01/21/25 1813 01/21/25200401/21/252121 BP: 135/85 127/70 120/78 BP Location: Right arm Patient Position: Sitting Pulse: 84 78 75 Resp: 16 16 16 SpO2: (!) 86% 96% 97% 100% EMERGENCY DEPARTMENT COURSE and DIFFERENTIAL DIAGNOSIS/MDM: Vitals: Vitals: 01/21/25 1803 01/21/25181201/21/25200401/21/252121 BP: 135/85 127/70 120/78 BP Location: Right arm Patient Position: Sitting Pulse: 84 78 75 Resp: 16 16 16 SpO2: (!) 86% 96% 97% 100% The patient presented with a chief complaint of left fourth digit open dislocation. Did not send a disc so x-rays were repeated and orthopedic hand surgery was consulted.. The differential diagnosis associated with this patient's presentation includes left fourth digit open dislocation. Our workup consisted of ordering/reviewing x-ray which again confirmed the open dislocation, questionable third digit fracture as well. Plastic surgery reduced and closed at bedside, recommended Keflex pain control and outpatient follow-up with Dr. Mcdaniel tomorrow.. Diagnoses as of 01/21/252128 Open dislocation of finger, initial encounter Diagnostic tests considered but not performed: External records reviewed: Diagnostics interpreted by me: Xray(s) open dislocation of the left fourth digit, questionable avulsion fracture volar aspect of the third PIP Discussions with other clinicians: Adoption Coordinator orthopedic surgery Chronic conditions impacting care: Social determinants of health affecting care: ED Medications managed: Medications bacitracin ointment ( Topical Given 01/21/252000) ceFAZolin in dextrose 4% (Ancef) IVPB 2,000 mg (0 mg IntraVENous Stopped 01/21/252106) lidocaine (Xylocaine) 1 % injection 20 mL (20 mL Injection Given 01/21/252001) oxyCODONE-acetaminophen (Percocet) 5-325 MG per tablet 2 tablet (2 tablets Oral Given 01/21/252113) CONSULTS: None PROCEDURES: Unless otherwise noted below, none Procedures Patients symptoms are consistent with sepsis, severe sepsis, or septic shock (If yes use .sepsiscoremeasure): FINAL IMPRESSION 1. Open dislocation of finger, initial encounter DISPOSITION/PLAN dc PATIENT REFERRED TO: Zhang Mcdaniel MD [address] [place] [place] [id number] Follow up Call first thing in the morning on 01/22 to schedule an appointment with Dr. Mcdaniel. DISCHARGE MEDICATIONS: Discharge Medication List as of 01/21/2025 9:11 PM START taking these medications Details cephalexin (Keflex) 500 MG capsule Take 1 capsule (500 mg) by mouth 4 times daily for 10 days., Starting Mayra 01/21/2025, Until 01/31/2025, Normal oxyCODONE-acetaminophen (Percocet) 5-325 MG tablet Take 1 tablet by mouth every 6 hours as needed for severe pain (7-10) for up to 3 days., Starting Mayra 01/21/2025, Until 01/24/2025 at 2359, Normal (Comment: Please note this report has been produced using speech recognition software and may contain errors related to that system including errors in grammar, punctuation, and spelling, as well as words and phrases that may be inappropriate. If there are any questions or concerns please feel free to contact the dictating provider for clarification.) Zachary Veronica DO (electronically signed) Emergency Medicine Provider Zachary Veronica DO 01/21/252128 [facility] Evaluation note Note Date & Type Note Facility Evaluation note No assessment information availa [facility] Work Phone: Evaluation note Note Date & Type Note Facility Evaluation note Diagnosis Open dislocation of finger, initial encounter- Primary documented in this encounter [facility] Discharge instructions Note Date & Type Note [facility] Discharge instructions Additional Instructions I would recommend taking [id number] Maalox or Pepto-Bismol as needed. I would also recommend taking Pepcid over the next 3 to 5 days. If worsening or new symptoms please return to emergency [facility] Work Phone: Summary Purpose Family History No Family History Records FoundNo Family History Records FoundNo Family History Records Found Advance Directives No Advanced Directives Records Found Advance Directive Response Recorded Date/ Time Living Will No September 21 7:57pm Power of Automotive Title Clerk No September 21, 2022 7:57pm Advance Directive Response Recorded Date/ Time Living Will No September 01 3 8:06am Power of Automotive Title Clerk No September 01 023 8:06am Chief Complaint and Reason for Visit Chief Complaint MALE PAIN Chief Complaint STOMACH BURNING Additional Source Comments (unrecognized sect ion and content) No Status Records FoundNo Status Records FoundNo Status Records Found INFORMATION SOURCE (unrecogn ized section and content) DATE CREATED AUTHOR 06/21/2020 [facility] DATE CREATED AUTHOR AUTHOR'S ORGANIZ ATION 01/31/2025 [facility] DATE CREATED AUTHOR AUTHOR'S ORGANIZ ATION 02/12/2025 [facility] Goals (unrecognized section and content) Goals may be documented in a n alternate sectionGoals may be documented in an alternate section Care Teams (unrecognized sec tion and content) Team Status: Active Member Role Status Dates Dr. Juan Francisco Bui MD Family Provider Active No Primary Care Physician Primary Care Provider Active Team Status: Inactive Member Role Status Dates No Primary Care Physician Primary Care Provider Active Dr. Enrique Love , DO Emergency Provider Active Reason for Visit (unrecogniz ed section and content) Reason Comments Finger Laceration Pt got hand caught i n sand almond grinder and has finger injury to has injury to left ring finger. Pt was seen at [facility] and sent in for care. Scheduled Active and Recently Administ ered Medications (unrecognized section and content) Medication Order 01/19/2025 01/20/2025 01/21/2025 bacitracin ointment Topical, 3 times daily, First dose on Mayra 01/21/25 at 2099 2000 (Given - Provid er: Cata Aguilar RN) ceFAZolin in dextrose 4% (Ancef) IVPB 2,000 mg 2,000 mg, IntraVENous, Administer over 30 Minutes, Every 8 hours, First dose on Mayra 01/21/25 at 1999, premix bag, Suspected Indication (Select all that apply): Other, Other Abx Indication: open PIP dislocation 2001 (New Bag - Prov ider: Cata Aguilar RN)2106 (Stopped - Provider: Cata Aguilar RN) lidocaine (Xylocaine) 1 % injection 20 mL (COMPLETED) 20 mL, Injection, Once, On Mayra 01/21/25 at 1850, For 1 dose, Deliver to bedside for procedure 2001 (Given - Provid er: Cata Aguilar RN) oxyCODONE-acetaminophen (Percocet) 5-325 MG per tablet 2 tablet (COMPLETED) 2 tablet, Oral, Once, On Mayra 01/21/25 at 2115, For 1 dose, Maximum dose of acetaminophen is 4000 mg from all sources in 24 hours. 211 (Given - Provid er: Cata Aguilar RN) FOR RECORDS PERTAINING TO PATIENTS WHO ARE OR HAVE BEEN ENROLLED IN A CHEMICAL DEPENDENCY/SUBSTANCEABUSE PROGRAM, SOME INFORMATION MAY BE OMITTED. This clinical summary was aggregated from multiple sources. Caution should be exercised in using it in the provision of clinical care. This summary normalizes information from multiple sources, and as a consequence, information in this document may materially change the coding, format and clinical context of patient data. In addition, data may be omitted in some cases. CLINICAL DECISIONS SHOULD BE BASED ON THE PRIMARY CLINICAL RECORDS. [email or web address] provides no warranty or guarantee of the accuracy or completeness of information in this document.
[2025-05-11 04:47] LABS: AST(SGOT) 25 U/L (<=37); Alanine Aminotransfer ALT/SGPT 28 U/L (<=46); Albumin, Serum 4.5 g/dL (3.5-5.0); Alkaline Phosphatase 99 U/L (40-129); Anion Gap 13 (5-15); BUN 27 mg/dL (4-19); BUN/Creat Ratio 23.1 RATIO (10-20); Bilirubin, Direct 0.19 mg/dL (0.00-0.30); Calcium,Total 9.5 mg/dL (7.6-11.0); Carbon Dioxide 21.5 mmol/L (21.0-32.0); Chloride 102 mmol/L (98-108); Creatinine, Serum 1.18 mg/dL (0.70-1.20); EST Glomerular Filtration Rate 89 (>60); Globulin 2.7 g/dL (2.2-4.2); Glucose 93 mg/dL (70-99); Potassium 3.7 mmol/L (3.3-5.1); Protein, Total 7.2 g/dL (5.9-8.4); Sodium Level 136 mmol/L (133-145); Total Bilirubin 0.39 mg/dL (0.00-1.30)
--- NOTE | 2025-05-11 05:01 | EX.ED.DYSGE1 ---
HPI History of Present Illness Chief Complaint: Chest Other Narrative Narrative: Patient is a 24-year-old male with a past medical history of ADHD who presented to the emergency department for concern of chest discomfort. Patient states that he woke up with a pain/popping sensation in the right side of his chest he was concerned therefore he came here for further evaluation management. He states that he has not had anything this happen before. He states that he works out on a regular basis and does not have worsening chest pain. Patient denies any recent travel history denies any history of blood clots. [facility] Medical History ADHD Home Medications ?Medication ?Instructions ?Recorded ?Last Taken ?Type NK 01/21/25 Unknown History Allergy/AdvReac Type Severity Reaction Status Date / Time No Known Allergies Allergy Verified 05/11/25 03:49 Surgical History S/P hernia surgery Social History household members: none current occupational status: employed Smoking Status: Never smoker substance use type: does not use ROS ROS ED ROS Narrative Constitutional: Denies fevers, chills, headaches Eyes: Denies change in vision double vision blurry vision Cardiovascular: Complains of right-sided chest discomfort as noted above denies palpitations Respiratory: Denies coughing wheezing shortness of breath Abdomen: Denies abdominal pain, nausea vomiting : Denies urinary symptoms Neurological: Denies numbness, weakness, and tingling Musculoskeletal: Denies back pain Skin: Denies any rashes or lesions EXAM Physical Exam Narrative Exam Narrative: General: Patient lying in bed rest comfortably did not appear to be acute distress Head: Atraumatic, normocephalic Eyes: PERRL bilaterally, EOMI bilaterally, no conjunctival injection noted Neck: Soft, supple, trachea midline Cardiovascular: Regular rate and rhythm no murmurs gallops rubs noted Respiratory: Clear to auscultation bilaterally Abdomen: Soft, nondistended, nontender to palpation Extremities: +5/5 strength noted in the bilateral upper and lower extremities Neurological: Patient following commands knew that he was at [facility] year is 2024 Skin: Warm, dry, intact no rashes or lesions noted Const Vital Signs: 05/11/25 03:50 05/11/25 04:06 Temperature 98.3 F Temperature Source Oral Pulse Rate 76 Respiratory Rate 16 Blood Pressure 155/101 H Blood Pressure Mean 119 Pulse Ox 98 Oxygen Delivery Method Room Air Room Air MDM MDM MDM Narrative Medical decision making narrative: Patient is a 24-year-old male who presents to the emergency department the chief complaint of right-sided chest discomfort. On the differential diagnose includes but not limited to pneumothorax, PE however he is low risk based on revised [place] score, anxiety, musculoskeletal strain. Once workup is obtained reviewed he will be reevaluated [place] Score (Revised) for Pulmonary Embolism from [employer] on 05/11/2025 All calculations should be rechecked by clinician prior to use RESULT SUMMARY: 3 points Low risk group: 7-9% incidence of PE from several studies. INPUTS: Age >65 ?> 0 = No Previous DVT or PE ?> 0 = No Surgery (under general anesthesia) or lower limb fracture in past month ?> 0 = No Active malignant condition ?> 0 = No Unilateral lower limb pain ?> 0 = No Hemoptysis ?> 0 = No Heart rate ?> 3 = 75-94 Pain on lower limb palpation and unilateral edema ?> 0 = No Patient CBC reviewed showed no evidence leukocytosis white blood count normal at 8, hemoglobin is 13.9, plate count was noted be 227. Patient sodium is 136, potassium normal at 3.7, creatinine was 1.18. Patient's AST and ALT are 25 and 20 respectively. Patient's EKG showed sinus rhythm with a rate of 62 bpm with evidence of benign early repolarization. Patient chest x-ray reviewed by myself and by radiology showed no acute cardiopulmonary processes. Discussed the results with the patient he would like to go home at this point in time. He was noted to have elevated blood pressure in the emergency department I question him on supplementation with working out and he states that he is taking supplements. He was advised to follow-up with a primary care doctor and keep a close eye on his blood pressure. He was encouraged return with worsening symptoms and concerns. He was advised to rotate Tylenol and ibuprofen [id number] for pain control. He is agreeable this plan all question concerns answered he is discharged home in stable condition. Lab Data Labs: Laboratory Results - last 24 hr 05/11/25 04:14 WBC 8.0 RBC 4.62 Hgb 13.9 Hct 39.6 L MCV 85.7 MCH 30.1 MCHC 35.1 RDW Std Deviation 37.3 RDW Coeff of Srinivas 12.1 Plt Count 227 MPV 10.5 Immature Gran % (Auto) 0.400 Neut % (Auto) 53.8 Lymph % (Auto) 35.5 [place] % (Auto) 8.6 Eos % (Auto) 1.1 Baso % (Auto) 0.6 Absolute Neuts (auto) 4.3 Absolute Lymphs (auto) 2.84 Nucleated RBC % 0 Sodium 136 Potassium 3.7 Chloride 102 Carbon Dioxide 21.5 Anion Gap 13 BUN 27 H Creatinine 1.18 Estim Creat Clear Calc 95.00 Est GFR (MDRD) Non-Af 89 BUN/Creatinine Ratio 23.1 H Glucose 93 Calcium 9.5 Total Bilirubin 0.39 Direct Bilirubin 0.19 AST 25 ALT 28 Alkaline Phosphatase 99 Total Protein 7.2 Albumin 4.5 Globulin 2.7 Radiography Diagnostic Testing: Clinical Impression(s) from Imaging Studies Chest X-Ray 05/11/25 04:06 IMPRESSION: No radiographic evidence of an acute abnormality. Reading Location: [place] [id number] Discharge Plan Triage Chief Complaint: Chest Other ED Provider: Juve Hendrickson Dx/Rx/DC Orders Clinical Impression: Chest pain Prescriptions: No Action NK Primary Care Provider: Care Physician,No Primary Referrals: Care Physician,No Primary [Primary Care Provider] - Adriana Garza Sam, [employer] [[facility]] - Activity Restrictions/Additional Instructions: Follow-up with your doctor that you referred to in the outpatient setting. Keep a close eye on your blood pressure. Return with worsening symptoms any concerns. Your blood work here today did not show any acute findings and your chest x-ray was normal as well. Your EKG was normal. Print Language: Scottish Disposition Disposition: Home, Self Care
[2025-05-11 05:18] VITALS: BP 142/80; PULSE 82; RESP 17; TEMP 36.3; O2SAT 98
== END 2025-05-11 05:18 | disposition home or self-care (01) ==
PROVIDERS: Emergency Provider Emergency Medicine; Visit Provider Emergency Medicine
DX: R07.89 Other chest pain (principal); R03.0 Elevated blood-pressure reading, without diagnosis of hypertension
CPT/HCPCS: 71046; 80048; 80076; 85025; 93005; 99283; A4216

== ENCOUNTER 2025-07-18 18:52 | Emergency (ER) | payer SELFPAY ==
[2025-07-18 18:52] VITALS: BP 135/78; PULSE 114; PULSE 116; RESP 20; TEMP 38.3; O2SAT 99; BMI 24.5
--- OUTSIDE RECORDS SUMMARY | 2025-07-18 20:31 | XMS RPT_ITS | CCD ---
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 Tavo Vargas DO Attending Provider Dr. Tavo Vargas DO Referring Provider Dr. Tavo Vargas DO Emergency Provider Dr. Zachary Hendrickson DO Emergency Provider Tavo Vargas Attending Unavailable Tavo Vargas Referring Unavailable Care Physician, No Primary Primary Care Unava ilable Zachary Hendrickson Attending Unavailable Care Physician, No Primary Primary Care Unava ilable Medications Current Medications Medication Drug Class(es) Dates Sig (Normalized) Sig (Original) cephalexin 500 mg oral capsule (2 sources) Cephalosporin Antibacterial Start: 01-21-2025 End: 01-31-2025 take 1 capsule by mouth four times daily cephalexin (Keflex) 500 MG capsule Take 1 capsule (500 mg) by mouth 4 times daily for 10 days. 40 capsule 01/21/2025 01/31/2025 Active [place] (Nk) (1 source) Start: 01-21-2025 [place] (Nk) Active January 21, 2025 1:00am Completed/Discontinued Medications Medication Drug Class(es) Dates Sig (Normalized) Sig (Original) Acetaminophen / HYDROcodone (3 sources) Opioid Agonist Start: 09-19-2013 End: 01-21-2025 take 1 mL by mouth every six hours as needed for pain Hydrocodone-Acetami nophen 15 ML solution Discontinued 15 mL PO EVERY 6 HOURS NEEDED as needed for pain September 19, 2013 6:09pm January 21, 2025 1:55pm Start: 09-19-2013 take 1 mL by mouth e very six hours as needed Hydrocodone-Acetaminophen Active 15 ML P O EVERY 6 HOURS NEEDED September 19, 2013 6:09pm acetaminophen 325 mg / oxyCODONE hydrochloride 5 [...] dose, Deliver to bedside for procedure Problems Active Problems Problem Classification Problem Date Documented Da te Episodic/Chronic Abdominal pain (2 sources) Acute abdominal pain; Translations: [Unspecified abdominal pain] 09-01-2023 Episodic Gastritis and duodenitis (2 sources) Gastritis; Translations: [Gastritis, unspecified, without bleeding] 09-01-2023 Episodic Joint disorders and dislocations; trauma-related (5 sources) Open dislocation of finger; Translations: [Unspecified dislocation of unspecified finger, initial encounter] Onset: 01-21-2025 01-21-2025 Episodic Nonspecific chest pain (2 sources) Chest pain; Translations: [Chest pain, unspecified] Onset: 05-17-2025 05-11-2025 Episodic Open wounds of extremities (2 sources) Unspecified open wound of unspecified finger without damage to nail, initial encounter; Translations: [Unspecified open wound of unspecified finger without damage to nail, initial encounter] Onset: 01-21-2025 Episodic Other male genital disorders (3 sources) Disorder of reproductive system; Translations: [Hydrocele, unspecified] 09-29-2022 Episodic Superficial injury; contusion (3 sources) Contusion of scrotum; Translations: [Contusion of scrotum and testes, initial encounter] 09-29-2022 Episodic Past or Other Problems Problem Classification Problem Date Documented Da te Episodic/Chronic Other connective tissue disease (1 source) Pain in left finger(s); Translations: [Pain in left finger(s)] Onset: 02-10-2025 Episodic Results Test Name Value Interpretation Reference Range Facility 12 Lead EKGon 05-11-2025 12 Lead EKG [facility] Cardiovascular Services [address] [place] [address] 12 Lead EKG 05/11/25 0428 MR#: [id number] Acct: [id number] Name: JUANJO DURHAM Rep #: [id number] : 2000 24 From: Raf Arellano MD Attending Dr: Status: DEP ER Ordering Dr: Zachary Hendrickson DO Date: 05/11/25 Location: ED Sex: M C Admitted: Test Reason : CP Blood Pressure : */* mmHG Vent. Rate : 62 BPM Atrial Rate : 62 BPM P-R Int : 136 ms QRS Dur : 94 ms QT Int : 376 ms P-R-T Axes : 49 72 37 degrees QTcB Int : 381 ms Normal sinus rhythm with sinus arrhythmia Early repolarization Normal ECG Confirmed by Raf Arellano ([id number]), book editor KENTON ANGEL ([id number]) on 05/13/2025 6:14:12 AM Referred By: TB Confirmed By: Raf Arellano 05/13/25613 Date Raf Arellano MD CC: Dr. Zachary Hendrickson, DO; No Primary Care Physician Signed Normal [facility] Absolute lymphocyte countOrd ered By: Zachary Hendrickson on 05-11-2025 Lymphocytes Auto (Unsp spec) [#/Vol] 2.84 10*3/uL 0.83-4.51 [facility] Absolute neutrophil countOrd ered By: Zachary Hendrickson on 05-11-2025 Neutrophils (Bld) [#/Vol] 4.3 10*3/uL 2.0-7.7 [facility] Anion gap in Serum or Plasma Ordered By: Zachary Hendrickson on 05-11-2025 Anion gap [Moles/Vol] 13 mmol/L 5-15 [facility] Automated lymphocyte count a s percentage of total leukocytesOrdered By: Zachary Hendrickson on 05-11-2025 Lymphocytes/100 WBC Auto (Unsp spec) 35.5 % -41 [facility] BUN/creatinine ratioOrdered By: Zachary Hendrickson on 05-11-2025 Urea nitrogen/Creatinine [Mass ratio] 23.1 mg/mg High - [facility] Basic Metabolic Profile (BMP )on 05-11-2025 BUN/CRE 23.1 RATIO High 09-20 [facility] Comment on above: Performed By: #### L 500.3400, L500.2500 #### [facility] Laboratory [address] [place], [address] Calcium [Mass/Vol] 9.5 mg/dL Normal 7.6-11.0 [facility] Comment on above: Performed By: #### L 500.3400, L500.2500 #### [facility] [address] [place], [address] Chloride [Moles/Vol] 102 mmol/L Normal 98-108 [facility] Comment on above: Performed By: #### L 500.3400, L500.2500 #### [facility] [address] [place], [address] CO2 [Moles/Vol] 21.5 mmol/L Normal 21.0-32.0 [facility] Comment on above: Performed By: #### L 500.3400, L500.2500 #### [facility] [address] [place], [address] Creatinine [Mass/Vol] 1.18 mg/dL Normal 0.70-1.20 [facility] Comment on above: Performed By: #### L 500.3400, L500.2500 #### [facility] [address] [place], [address] ECRCL 95.00 ml/min Normal 50-250 [facility] Comment on above: Performed By: #### L 500.3400, L500.2500 #### [facility] [address] [place], [address] GAP 13 Normal 5-15 [facility] Comment on above: Performed By: #### L 500.3400, L500.2500 #### [facility] [address] [place], [address] GFR/1.73 sq M.predicted among non-blacks MDRD (S/P/Bld) [Vol rate/Area] 89 mL/min/{1.73_m2} Normal >60 [facility] Comment on above: Result Comment: mL/m in/1.73m2 CKD-EPI Creatinine Equation (2020) Performed By: #### L 500.3400, L500.2500 #### [facility] [address] [place], [address] Glucose [Mass/Vol] 93 mg/dL Normal 70-99 [facility] Comment on above: Performed By: #### L 500.3400, L500.2500 #### [facility] [address] [place], [address] Potassium [Moles/Vol] 3.7 mmol/L Normal 3.3-5.1 [facility] Comment on above: Performed By: #### L 500.3400, L500.2500 #### [facility] [address] [place], [address] Sodium [Moles/Vol] 136 mmol/L Normal 133-145 [facility] Comment on above: Performed By: #### L 500.3400, L500.2500 #### [facility] [address] [place], [address] Urea nitrogen [Mass/Vol] 27 mg/dL High 4-19 [facility] Comment on above: Performed By: #### L 500.3400, L500.2500 #### [facility] [address] [place], [address] Basophil percentageOrdered B y: Zachary Hendrickson on 05-11-2025 Basophils/100 WBC (Bld) 0.6 % 0-1 [facility] Bilirubin directOrdered By: Zachary Hendrickson on 05-11-2025 Bilirubin.direct [Mass/Vol] 0.19 mg/dL 0.00-0.30 [facility] Bilirubin, totalOrdered By: Zachary Hendrickson on 05-11-2025 Bilirubin [Mass/Vol] 0.39 mg/dL 0.00-1.30 [facility] CBC W/Diff, Automatedon 05-02-2024 Absolute Lymph 2.84 X10 3/uL Normal 0.83-4.51 [facility] Comment on above: Performed By: #### L 100.0100 #### [facility] [address] [place], [address] Absolute Neut 4.3 X10 3/uL Normal 2.0-7.7 [facility] Comment on above: Performed By: #### L 100.0100 #### [facility] [address] [place], [address] Basophils/100 WBC (Bld) 0.6 % Normal 0-1 [facility] Comment on above: Performed By: #### L 100.0100 #### [facility] [address] [place], [address] Eosinophils/100 WBC (Bld) 1.1 % Normal 0-5 [facility] Comment on above: Performed By: #### L 100.0100 #### [facility] [address] [place], [address] Erythrocyte distribution width (RBC) [Ratio] 12.1 % Normal 11.6-14.6 [facility] Comment on above: Performed By: #### L 100.0100 #### [facility] [address] [place], [address] Hematocrit (Bld) [Volume fraction] 39.6 % Low 40-54 [facility] Comment on above: Performed By: #### L 100.0100 #### [facility] [address] [place], [address] Hemoglobin (Bld) [Mass/Vol] 13.9 g/dL Normal 13.0-16.5 [facility] Comment on above: Performed By: #### L 100.0100 #### [facility] [address] [place], [address] IG% 0.400 Normal 0.0-0.9 [facility] Comment on above: Result Comment: IG% - Immature Granulocytes (promyelocytes, myelocytes and metamyelocytes) > 1% indicates that a LEFT SHIFT is Present. Performed By: #### L 100.0100 #### [facility] [address] [place], [address] Lymphocytes/100 WBC (Bld) 35.5 % Normal 19-41 [facility] Comment on above: Performed By: #### L 100.0100 #### [facility] [address] [place], [address] MCH (RBC) [Entitic mass] 30.1 pg Normal 27.0-32.0 [facility] Comment on above: Performed By: #### L 100.0100 #### [facility] [address] [place], [address] MCHC (RBC) [Mass/Vol] 35.1 g/dL Normal 32-36 [facility] Comment on above: Performed By: #### L 100.0100 #### [facility] [address] [place], [address] MCV (RBC) [Entitic vol] 85.7 fL Normal 80-94 [facility] Comment on above: Performed By: #### L 100.0100 #### [facility] [address] [place], [address] Monocytes/100 WBC (Bld) 8.6 % Normal 0-10 [facility] Comment on above: Performed By: #### L 100.0100 #### [facility] [address] [place], [address] Neutrophils/100 WBC (Bld) 53.8 % Normal 47-70 [facility] Comment on above: Performed By: #### L 100.0100 #### [facility] [address] [place], [address] Nucleated RBC (Bld) [#/Vol] 0 10*3/uL Normal 0-5 [facility] Comment on above: Performed By: #### L 100.0100 #### [facility] [address] [place], [address] Platelet mean volume (Bld) [Entitic vol] 10.5 fL Normal 6.2-12.0 [facility] Comment on above: Performed By: #### L 100.0100 #### [facility] [address] [place], [address] Platelets (Bld) [#/Vol] 227 10*3/uL Normal 150-450 [facility] Comment on above: Performed By: #### L 100.0100 #### [facility] [address] [place], [address] RBC (Bld) [#/Vol] 4.62 10*6/uL Normal 4.6-6.2 [facility] Comment on above: Performed By: #### L 100.0100 #### [facility] [address] [place], [address] RDW SD 37.3 fl Normal 35.1-43.9 [facility] Comment on above: Performed By: #### L 100.0100 #### [facility] [address] [place], [address] WBC (Bld) [#/Vol] 8.0 10*3/uL Normal 4.4-11.0 [facility] Comment on above: Performed By: #### L 100.0100 #### [facility] [address] [place], [address] Carbon dioxide, total [Moles /volume] in Central venous bloodOrdered By: Zachary Hendrickson on 05-11-2025 CO2 [Moles/Vol] 21.5 mmol/L 21.0-32.0 [facility] Chest PA and Lateralon 05-11 Chest PA and Lateral [facility] Imaging Services [address] [place] [address] Chest PA and Lateral MR#: [id number] Acct: [id number] Name: JUANJO DURHAM Rep #: [id number] : 2000 M 24 From: Zackery clark MD PCP: Care Physician,No Primary Status: REG ER Study: Chest PA and Lateral Date of Exam: 05/11/25 Exam# [id number] Ordering Dr: Zachary Hendrickson DO PROCEDURE: CHEST PA AND LATERAL 05/11/2025 REASON FOR EXAM: CHEST PAIN, RIGHT SIDE TECHNIQUE: Frontal and lateral views of the chest. COMPARISON: None. FINDINGS: The lungs are expanded. There is no demonstrated parenchymal abnormality. There is no demonstrated pleural abnormality. Normal heart and pericardium. Normal mediastinum and nathalie. Normal visualized pulmonary arteries. Normal visualized aortic arch and descending thoracic aorta. Normal visualized thoracic spine. Normal visualized ribs, clavicles, and shoulders. There is no demonstrated abnormality of the visualized soft tissue structures of the upper abdomen. RAD/Chest PA and Lateral IMPRESSION: No radiographic evidence of an acute abnormality. Reading Location: [place] [address] CC: Dr. Zachary Hendrickson DO; No Primary Care Physician Gas System Operator: Signed Normal [facility] Chloride assayOrdered By: Salvador Hendrickson on 05-11-2025 Chloride [Moles/Vol] 102 mmol/L 98-108 [facility] Emergency Department Summary on 05-11-2025 Emergency Department Summary [facility] Medical Records Department [address] [place] [address] Emergency Department Summary 05/11/25 MR#: [id number] Acct: [id number] Name: JUANJO DURHAM Rep #: [id number] : 2000 24 From: Zachary Hendrickson DO PCP: Care Physician,No Primary Status:REG ER Location: ED HPI History of Present Illness Chief Complaint: Chest Other Narrative Narrative: Patient is a 24-year-old male with a past medical history of ADHD who presented to the emergency department for concern of chest discomfort. Patient states that he woke up with a pain/popping sensation in the right side of his chest he was concerned therefore he came here for further evaluation management. He states that he has not had anything this happen before. He states that he works out on a regular basis and does not have worsening chest pain. Patient denies any recent travel history denies any history of blood clots. [facility] Medical History ADHD Home Medications ???Medication ???Instructions ???Recorded ???Last Taken ???Type NK 01/21/25 Unknown History Allergy/AdvReac Type Severity Reaction Status Date / Time No Known Allergies Allergy Verified 05/11/25 03:49 Surgical History S/P hernia surgery Social History household members: none current occupational status: employed Smoking Status: Never smoker substance use type: does not use ROS ROS ED ROS Narrative Constitutional: Denies fevers, chills, headaches Eyes: Denies change in vision double vision blurry vision Cardiovascular: Complains of right-sided chest discomfort as noted above denies palpitations Respiratory: Denies coughing wheezing shortness of breath Abdomen: Denies abdominal pain, nausea vomiting : Denies urinary symptoms Neurological: Denies numbness, weakness, and tingling Musculoskeletal: Denies back pain Skin: Denies any rashes or lesions EXAM Physical Exam Narrative Exam Narrative: General: Patient lying in bed rest comfortably did not appear to be acute distress Head: Atraumatic, normocephalic Eyes: PERRL bilaterally, EOMI bilaterally, no conjunctival injection noted Neck: Soft, supple, trachea midline Cardiovascular: Regular rate and rhythm no murmurs gallops rubs noted Respiratory: Clear to auscultation bilaterally Abdomen: Soft, nondistended, nontender to palpation Extremities: +5/5 strength noted in the bilateral upper and lower extremities Neurological: Patient following commands knew that he was at [facility] year is 2024 Skin: Warm, dry, intact no rashes or lesions noted Const Vital Signs: 05/11/25 03:50 05/11/25 04:06 Temperature 98.3 F Temperature Source Oral Pulse Rate 76 Respiratory Rate 16 Blood Pressure 155/101 H Blood Pressure Mean 119 Pulse Ox 98 Oxygen Delivery Method Room Air Room Air MDM MDM MDM Narrative Medical decision making narrative: Patient is a 24-year-old male who presents to the emergency department the chief complaint of right- sided chest discomfort. On the differential diagnose includes but not limited to pneumothorax, PE however he is low risk based on revised Schley score, anxiety, musculoskeletal strain. Once workup is obtained reviewed he will be reevaluated Schley Score (Revised) for Pulmonary Embolism from [employer] on 05/11/2025 All calculations should be rechecked by clinician prior to use RESULT SUMMARY: 3 points Low risk group: 7-9% incidence of PE from several studies. INPUTS: Age >65 ???> 0 = No Previous DVT or PE ???> 0 = No Surgery (under general anesthesia) or lower limb fracture in past month ???> 0 = No Active malignant condition ???> 0 = No Unilateral lower limb pain ???> 0 = No Hemoptysis ???> 0 = No Heart rate ???> 3 = 75-94 Pain on lower limb palpation and unilateral edema ???> 0 = No Patient CBC reviewed showed no evidence leukocytosis white blood count normal at 8, hemoglobin is 13.9, plate count was noted be 227. Patient sodium is 136, potassium normal at 3.7, creatinine was 1.18. Patient's AST and ALT are 25 and 20 respectively. Patient's EKG showed sinus rhythm with a rate of 62 bpm with evidence of benign early repolarization. Patient chest x-ray reviewed by myself and by radiology showed no acute cardiopulmonary processes. Discussed the results with the patient he would like to go home at this point in time. He was noted to have elevated blood pressure in the emergency department I question him on supplementation with working out and he states that he is taking supplements. He was advised to follow-up with a primary care doctor and keep a close eye on his blood pressure. He was encouraged retur (more content not included)... Normal [facility] Eosinophil percentageOrdered By: Zachary Hendrickson on 05-11-2025 Eosinophils/100 WBC (Bld) 1.1 % 0-5 [facility] Erythrocyte distribution wid th ratioOrdered By: Zachary Hendrickson on 05-11-2025 Erythrocyte distribution width (RBC) [Ratio] 12.1 % 11.6-14.6 [facility] Erythrocyte distribution wid th standard deviationOrdered By: Zachary Hendrickson on 05-11-2025 Erythrocyte distribution width (RBC) [Ratio] 37.3 fl 35.1-43.9 [facility] Glomerular filtration rate ( GFR) estimation/1.73 sq m using serum, plasma, or whole bOrdered By: Zachary Hendrickson on 05-11-2025 GFR/1.73 sq M.predicted among non-blacks MDRD (S/P/Bld) [Vol rate/Area] 89 mL/min/{1.73_m2} >60 [facility] Comment on above: mL/min/1.73m2 CKD-EP I Creatinine Equation (2020) Hematocrit Auto (Bld) [Volum e fraction]Ordered By: Zachary Hendrickson on 05-11-2025 Hematocrit (Bld) [Volume fraction] 39.6 % Low 40-54 [facility] Hemoglobin measurementOrdere d By: Zachary Hendrickson on 05-11-2025 Hemoglobin (Bld) [Mass/Vol] 13.9 g/dL 13.0-16.5 [facility] Immature granulocytes/100 WB C Auto (Bld)Ordered By: Zachary Hendrickson on 05-11-2025 Immature granulocytes/100 WBC (Bld) 0.400 % 0.0-0.9 [facility] Comment on above: IG% - Immature Granu locytes (promyelocytes, myelocytes and metamyelocytes) > 1% indicates that a LEFT SHIFT is Present. Laboratory - Chemistry and C hemistry - challengeOrdered By: Zachary Hendrickson on 05-11-2025 AST [Catalytic activity/Vol] 25 U/L <38 [facility] Liver Profileon 05-11-2025 Albumin [Mass/Vol] 4.5 g/dL Normal 3.5-5.0 [facility] Comment on above: Performed By: #### L 500.3400, L500.2500 #### [facility] Laboratory [address] [place], [address] ALK PHOS 99 U/L Normal 40-129 [facility] Comment on above: Performed By: #### L 500.3400, L500.2500 #### [facility] [address] [place], [address] ALT [Catalytic activity/Vol] 28 U/L Normal <=46 [facility] Comment on above: Performed By: #### L 500.3400, L500.2500 #### [facility] [address] [place], [address] AST [Catalytic activity/Vol] 25 U/L Normal <=37 [facility] Comment on above: Performed By: #### L 500.3400, L500.2500 #### [facility] [address] [place], [address] Bilirubin [Mass/Vol] 0.39 mg/dL Normal 0.00-1.30 [facility] Comment on above: Performed By: #### L 500.3400, L500.2500 #### [facility] [address] [place], [address] Bilirubin.direct [Mass/Vol] 0.19 mg/dL Normal 0.00-0.30 [facility] Comment on above: Performed By: #### L 500.3400, L500.2500 #### [facility] [address] [place], [address] Globulin (S) [Mass/Vol] 2.7 g/dL Normal 2.2-4.2 [facility] Comment on above: Performed By: #### L 500.3400, L500.2500 #### [facility] [address] [place], [address] T PROT 7.2 g/dL Normal 5.9-8.4 [facility] Comment on above: Performed By: #### L 500.3400, L500.2500 #### [facility] [address] [place], [address] MCV (mean corpuscular volume ) determinationOrdered By: Zachary Hendrickson on 05-11-2025 MCV (RBC) [Entitic vol] 85.7 fL 80-94 [facility] Mean corpuscular hemoglobin (MCH) determinationOrdered By: Zachary Hendrickson on 05-11-2025 MCH (RBC) [Entitic mass] 30.1 pg 27.0-32.0 [facility] Mean corpuscular hemoglobin concentration (MCHC) determinationOrdered By: Zachary Hendrickson on 05-11-2025 MCHC (RBC) [Mass/Vol] 35.1 g/dL 32-36 [facility] Mean platelet volume determi nationOrdered By: Zachary Hendrickson on 05-11-2025 Platelet mean volume (Bld) [Entitic vol] 10.5 fL 6.2-12.0 [facility] Monocyte percentageOrdered B y: Zachary Hendrickson on 05-11-2025 Monocytes/100 WBC (Bld) 8.6 % 0-10 [facility] Neutrophil percentageOrdered By: Zachary Hendrickson on 05-11-2025 Neutrophils/100 WBC (Bld) 53.8 % 47-70 [facility] Nucleated red blood cell per centageOrdered By: Zachary Hendrickson on 05-11-2025 Nucleated RBC/100 WBC (Bld) [Ratio] 0 % 0-5 [facility] Platelet countOrdered By: Salvador Hendrickson on 05-11-2025 Platelets (Bld) [#/Vol] 227 10*3/uL 150-450 [facility] Potassium measurement (mass/ volume)Ordered By: Zachary Hendrickson on 05-11-2025 Potassium (Unsp spec) [Mass/Vol] 3.7 mmol/L 3.3-5.1 [facility] RBC Auto (Bld) [#/Vol]Ordere d By: Zachary Hendrickson on 05-11-2025 RBC (Bld) [#/Vol] 4.62 10*6/uL 4.6-6.2 [facility] Serum creatinine measurement (mass/volume)Ordered By: Zachary Hendrickson on 05-11-2025 Creatinine [Mass/Vol] 1.18 mg/dL 0.70-1.20 [facility] Serum globulin measurementOr dered By: Zachary Hendrickson on 05-11-2025 Globulin (S) [Mass/Vol] 2.7 g/dL 2.2-4.2 [facility] Serum glucose measurement (m ass/volume)Ordered By: Zachary Hendrickson on 05-11-2025 Glucose [Mass/Vol] 93 mg/dL 70-99 [facility] Serum or plasma alanine cook otransferase (ALT) measurementOrdered By: Zachary Hendrickson on 05-11-2025 ALT [Catalytic activity/Vol] 28 U/L <47 [facility] Serum or plasma albumin sherri urement (mass/volume)Ordered By: Zachary Hendrickson on 05-11-2025 Albumin [Mass/Vol] 4.5 g/dL 3.5-5.0 [facility] Serum or plasma alkaline brian sphatase measurementOrdered By: Zachary Hendrickson on 05-11-2025 ALP [Catalytic activity/Vol] 99 U/L 40-129 [facility] Serum or plasma calcium sherri urement (mass/volume)Ordered By: Zachary Hendrickson on 05-11-2025 Calcium [Mass/Vol] 9.5 mg/dL 7.6-11.0 [facility] Serum or plasma urea nitroge n measurement (mass/volume)Ordered By: Zachary Hendrickson on 05-11-2025 Urea nitrogen [Mass/Vol] 27 mg/dL High 4-19 [facility] Sodium levelOrdered By: Sera Hendrickson on 05-11-2025 Sodium [Moles/Vol] 136 mmol/L 133-145 [facility] Total proteinOrdered By: Genesis Hendrickson on 05-11-2025 Protein [Mass/Vol] 7.2 g/dL 5.9-8.4 [facility] White blood cell (WBC) count Ordered By: Zachary Hendrickson on 05-11-2025 WBC (Bld) [#/Vol] 8.0 10*3/uL 4.4-11.0 [facility] Consulton 01-21-2025 Consult Ortho Consult Patient: Juanjo Durham Date of : 2000 Acct: [id number] PCP: No primary care provider on file. Date of Admission: 01/21/2025 Date of Service: Pt seen/examined on 01/21/2025 Chief Complaint: left hand injury History Of Present Illness: This is a 24 y.o. left hand dominant male who presents with a left hand injury which he acquired today at work around noon. 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 He endorses a traction mechanism of injury. He initially presented to [facility] where he received a digital block [...] drug use. Patient ambulation status: no difficulty. Antiplatelets/Antic oagulation includes: none. Profession/Employme nt: [employer] Past Medical History: No past medical history on file. Past Surgical History: No past surgical history on file. Home Medications: Prior to Admission medications Not on File Current Hospital Medications: No current facility-administer ed medications for this encounter. No current outpatient [...] except where noted below -Painless pROM at shoulder/elbow/wris t 2-point discrimination (mm) RIGHT Hand Thumb Index [...] except where noted below -Painless pROM at shoulder/elbow/wris t 2-point discrimination (mm) LEFT Hand Thumb Index [...] the long (more content not included)... 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 Pt was seen at [facility] and sent in for care. HISTORY OF [...] caught on a knot. Initially presented to [facility] who performed x-ray, gave tetanus Ancef and performed a digital nerve block, spoke with Dr. Mcdaniel with Ortho hand who recommended ED to ED transfer. Nursing Notes were reviewed. REVIEW OF SYSTEMS 14 systems reviewed and otherwise acutely negative except as in the [facility]. PAST MEDICAL HISTORY No past medical history on file. SURGICAL HISTORY No past surgical history on file. CURRENT MEDICATIONS Discharge Medication List as of 01/21/2025 9:11 PM ALLERGIES Patient has no known allergies. FAMILY HISTORY No family history on file. SOCIAL HISTORY Social History Socioeconomic History Marital status: Single SCREENINGS [place] Coma Scale Best Eye Response: Spontaneous Best Verbal Response: Oriented Best Motor Response: Follows commands [place] Coma Scale Score: 15 PHYSICAL EXAM ED [...] questionable av (more content not included)... Normal [facility] Emergency Department Summary on 01-21-2025 Emergency Department Summary [facility] Medical Records Department [address] [place] [address] Emergency Department Summary 01/21/25 MR#: [id number] Acct: [id number] Name: JUANJO DURHAM Rep #: [id number] : 2000 24 From: Tavo Vargas DO PCP: Care Physician,No Primary Status:DEP ER Location: ED HPI History of Present Illness Chief Complaint: Upper Extremity Injury Informant: patient Narrative Narrative: Patient is a [id number] male presenting with injury to his left [...] of fentanyl and route. Tetanus Immunization: Unknown [facility] Medical History (Updated 01/21/25 @ 16:[address] Tavo Vargas, ) ADHD Home Medications ???Medication ???Instructions ???Recorded ???Last [...] of left ring finger ); Denies weakness Hematologic/Lymphat ic Hematologic/Lymphat ic: Denies easy bleeding or easy bruising EXAM [...] Primary [Primary Care Provider] - Print Language: Palauan Disposition Disposition: Acute Care Hospital Discharge Location: (more content not included)... Normal [facility] Finger(s) Min 2 [facility] 01-03 Finger(s) Min 2 Views [facility] Imaging Services [address] [address] Finger(s) Min 2 Views MR#: [id number] Acct: [id number] Name: JUANJO DURHAM Rep #: [id number] : 2000 M 24 From: Fredy Sanchez MD PCP: Care Physician,No Primary Status: REG ER Study: Finger(s) Min 2 Views Date of Exam: 01/21/25 Exam# [id number] Ordering Dr: Tavo Vargas DO PROCEDURE: LEFT [...] Tavo Vargas DO; No Primary Care Physician Gas System Operator: Signed Normal [facility] XR Hand - left 3 Viewson 1. [...] MD Electronically Signed Date/Time: 01/21/2025 6:45 PM [facility] RADIOLOGY SYSTEM Patient Name: JUANJO DURHAM : 2000 Exam [...] body is identified. Normal bone mineral density. [facility] RADIOLOGY SYSTEM Monroe Hernandez MD - 01/21/2025 Patient Name: [...] Electronically Signed Date/Time: 01/21/2025 6:45 PM EST [facility] Radiology Study observation (narrative) [facility] alth XR Hand - left 3 ViewsOrdere d By: Monroe Hernandez on 01-21-2025 [facility] [employer] Work Phone: Absolute lymphocyte countOrd ered By: Enrique Love on 09-01-2023 Lymphocytes Auto (Unsp spec) [#/Vol] 2.05 10*3/uL 0.83-4.51 [facility] Basophil percentageOrdered B y: Enrique Love on 09-01-2023 Basophils/100 WBC (Bld) 0.9 % 0-1 [facility] Bilirubin [Mass/Vol] 0.30 mg/dL 0.20-1.00 [facility] Comment on above: For patients on eltr ombopag therapy, use of Dimension [place] TBIL is not recommended. Chloride [Moles/Vol] 108 mmol/L 98-107 [facility] Eosinophils/100 WBC (Bld) 0.9 % 0-5 [facility] Glucose [Mass/Vol] 99 mg/dL 74-106 [facility] Neutrophils (Bld) [#/Vol] 5.7 10*3/uL 2.0-7.7 [facility] Neutrophils/100 WBC (Bld) 66.4 % 47-70 [facility] Potassium [Moles/Vol] 3.9 mmol/L 3.5-5.1 [facility] Protein [Mass/Vol] 7.8 g/dL 6.4-8.2 [facility] Sodium [Moles/Vol] 138 mmol/L 136-145 [facility] WBC (Bld) [#/Vol] 8.6 10*3/uL 4.4-11.0 [facility] Blood erythrocytes count (nu mber/volume)Ordered By: Enrique Love on 09-01-2023 RBC (Bld) [#/Vol] 4.93 10*6/uL 4.6-6.2 [facility] Blood hemoglobin measurement (mass/volume)Ordered By: Enrique Love on 09-01-2023 Hemoglobin (Bld) [Mass/Vol] 15.2 g/dL 13.0-16.5 [facility] Blood lymphocytes/100 leukoc ytesOrdered By: Enrique Love on 09-01-2023 Lymphocytes/100 WBC (Bld) 23.8 % 19-41 [facility] Blood monocytes/100 leukocyt esOrdered By: Enrique Love on 09-01-2023 Monocytes/100 WBC (Bld) 7.8 % 0-10 [facility] Blood platelet mean volumeOr dered By: Enrique Love on 09-01-2023 Platelet mean volume (Bld) [Entitic vol] 10.4 fL 6.2-12.0 [facility] Determination of erythrocyte mean corpuscular volume (MCV)Ordered By: Enrique Love on 09-01-2023 MCV (RBC) [Entitic vol] 90.5 fL 80-94 [facility] Direct bilirubinOrdered By: Enrique Love on 09-01-2023 Bilirubin.direct [Mass/Vol] 0.11 mg/dL 0.00-0.30 [facility] Hematocrit Auto (Bld) [Volum e fraction]Ordered By: Enrique Love on 09-01-2023 Hematocrit (Bld) [Volume fraction] 44.6 % 40-54 [facility] Laboratory - Chemistry and C hemistry - challengeOrdered By: Enrique Love on 09-01-2023 ALP [Catalytic activity/Vol] 127 U/L 45-117 [facility] ALT [Catalytic activity/Vol] 44 U/L 16-61 [facility] CO2 [Moles/Vol] 25.0 mmol/L 21.0-32.0 [facility] Globulin (S) [Mass/Vol] 3.4 g/dL 2.2-4.2 [facility] Lipase [Catalytic activity/Vol] 45 U/L 13-75 [facility] Comment on above: Please note:LIPASE r evised reference range effective 23. New Lipase methodology. Expected to produce lower values than the previous assay method. NEW Reference Range: 13 - 75 U/L Urea nitrogen/Creatinine [Mass ratio] 23.0 mg/mg 10-20 [facility] Laboratory - Hematology and Cell countsOrdered By: Enrique Love on 09-01-2023 Erythrocyte distribution width (RBC) [Entitic vol] 39.7 fL 35.1-43.9 [facility] Erythrocyte distribution width (RBC) [Ratio] 12.0 % 11.6-14.6 [facility] Immature granulocytes/100 WBC (Bld) 0.200 % 0.0-0.9 [facility] Comment on above: IG% - Immature Granu locytes (promyelocytes, myelocytes and metamyelocytes) > 1% indicates that a LEFT SHIFT is Present. MCH (RBC) [Entitic mass] 30.8 pg 27.0-32.0 [facility] Nucleated RBC/100 WBC (Bld) [Ratio] 0 % 0-5 [facility] MCHC Auto (RBC) [Mass/Vol]Or dered By: Enrique Love on 09-01-2023 MCHC (RBC) [Mass/Vol] 34.1 g/dL 32-36 [facility] No Panel InformationOrdered By: Enrique Love on 09-01-2023 Estimated Creatinine Clearance Calc 126.52 ml/min [facility] Estimated GFR (MDRD) Amer 143 mL/min >60 [facility] Comment on above: GFR Calc Estimated GFR (MDRD) Non-Af Amer 118 mL/min >60 [facility] Comment on above: Non- GFR Calc Platelets bldOrdered By: Rodolfo Love on 09-01-2023 Platelets (Bld) [#/Vol] 267 10*3/uL 150-450 [facility] Serum or plasma albumin sherri urement (mass/volume)Ordered By: Enrique Love on 09-01-2023 Albumin [Mass/Vol] 4.4 g/dL 3.2-5.0 [facility] Serum or plasma calcium sherri urement (mass/volume)Ordered By: Enrique Love on 09-01-2023 Calcium [Mass/Vol] 9.2 mg/dL 8.5-10.1 [facility] Serum or plasma creatinine m easurement (mass/volume)Ordered By: Enrique Love on 09-01-2023 Creatinine [Mass/Vol] 0.87 mg/dL 0.70-1.30 [facility] Comment on above: The validity of the calculated GFR & GFRAA in patients over 70 years has not been determined. Clinical correlation is essential. Serum or plasma urea nitroge n measurement (mass/volume)Ordered By: Enrique Love on 09-01-2023 Urea nitrogen [Mass/Vol] 20 mg/dL 7-18 [facility] Thin prep Papanicolaou smear with manual screeningOrdered By: Enrique Love on 09-01-2023 Thin prep Papanicolaou smear with manual screening 26 U/L 15-37 [facility] Thin prep Papanicolaou smear with manual screening 5 5-15 [facility] COVID PCR, SCREENING CONGREG ATE05-26-2020 CORONAVIRUS 2019,PCR NOT DETECTED Normal Not Detected [...] patient management decisions. Fact sheet for providers: https://www.fda.gov/media/298897/download Fact sheet for patients: https://www.fda.gov/media/189075/download This test has received FDA Emergency Use Authorization (EUA) and has been verified by [facility] ([facility]). This test is only authorized for the duration of time that circumstances exist to justify the authorization of the emergency use of in vitro diagnostic tests for the detection of SARS-CoV-2 virus and/or diagnosis of COVID-19 infection under section 564(b)(1) of the Act, 21 U.S.C. 360bbb-3(b)(1), unless the authorization is terminated or revoked sooner. [facility] ([facility]) is certified under CLIA-88 as qualified to perform high complexity testing. This tests analytical performance characteristics have been determined by [facility]. Testing is performed at [facility] is located at [address] [place] [address] (CLIA License #[id number], CAP #[id number]). Performed By: #### C VCLA #### [facility] [address] [place] [address] COVID PCR, SCREENING CONGREG ATEon 05-25-2020 Lab Specimen Source Nasal, Nasopharyngeal Normal [facility] Comment on above: Performed By: #### C VCLA #### [facility] [address] [place] [address] Vital Signs Date Time Vital Sign Value Performing Clinician Michael lala 05-11-2025 05:18-0400 Body temperature 97.4 [degF] No Primary Care Physician [facility] 05-11-2025 05:18-0400 Diastolic blood pressure 80 mm[Hg] No Primary Care Physician [facility] 05-11-2025 05:18-0400 Heart rate 82 /min No Primary Care Physician [facility] 05-11-2025 05:18-0400 Respiratory rate 17 /min No Primary Care Physician [facility] 05-11-2025 05:18-0400 SaO2% (BldA) [Mass fraction] 98 % No Primary Care Physician [facility] 05-11-2025 05:18-0400 Systolic blood pressure 142 mm[Hg] No Primary Care Physician [facility] 05-11-2025 03:50-0400 Body height 172.72 cm No Primary Care Physician [facility] 05-11-2025 03:50-0400 Body mass index (BMI) [Ratio] 24.5 kg/m2 No Primary Care Physician [facility] 05-11-2025 03:50-0400 Body weight 73.22 kg No Primary Care Physician [facility] 01-21-2025 21:22-0500 Diastolic blood pressure 78 mm[Hg] Zachary Gombash DO Work Phone: [facility] [employer] 01-21-2025 21:22-0500 Heart rate 75 /min Zachary Gombash DO Work Phone: [facility] [employer] 01-21-2025 21:22-0500 Respiratory rate 16 /min Zachary Gombash DO Work Phone: [facility] [employer] 01-21-2025 21:22-0500 SaO2% (BldA) [Mass fraction] 100 % Zachary Gombash DO Work Phone: [facility] [employer] 01-21-2025 21:22-0500 Systolic blood pressure 120 mm[Hg] Zachary Gombash DO Work Phone: [facility] [employer] 01-21-2025 16:28-0500 Body temperature 98.1 [degF] No Primary Care Physician [facility] 01-21-2025 16:28-0500 Diastolic blood pressure 76 mm[Hg] No Primary Care Physician [facility] 01-21-2025 16:28-0500 Heart rate 85 /min No Primary Care Physician [facility] 01-21-2025 16:28-0500 Respiratory rate 18 /min No Primary Care Physician [facility] 01-21-2025 16:28-0500 SaO2% (BldA) [Mass fraction] 96 % No Primary Care Physician [facility] 01-21-2025 16:28-0500 Systolic blood pressure 135 mm[Hg] No Primary Care Physician [facility] 01-21-2025 12:52-0500 Body mass index (BMI) [Ratio] 25.7 kg/m2 No Primary Care Physician [facility] 01-21-2025 12:52-0500 Body weight 76.6 kg No Primary Care Physician [facility] 09-01-2023 07:35-0400 Body height 172.72 cm [facility] 09-01-2023 07:35-0400 Body mass index (BMI) [Ratio] 22.1 kg/m2 [facility] 09-01-2023 07:35-0400 Body temperature 97.6 [degF] [facility] 09-01-2023 07:35-0400 Body weight 66.04 kg [facility] 09-01-2023 07:35-0400 Diastolic blood pressure 103 mm[Hg] [facility] 09-01-2023 07:35-0400 Heart rate 83 /min [facility] 09-01-2023 07:35-0400 Respiratory rate 14 /min [facility] 09-01-2023 07:35-0400 SaO2% (BldA) [Mass fraction] 100 % [facility] 09-01-2023 07:35-0400 Systolic blood pressure 166 mm[Hg] [facility] 09-21-2022 20:59-0400 Diastolic blood pressure 94 mm[Hg] [facility] Work Phone: 09-21-2022 20:59-0400 Heart rate 80 /min [facility] Work Phone: 09-21-2022 20:59-0400 Respiratory rate 17 /min [facility] Work Phone: 09-21-2022 20:59-0400 SaO2% (BldA) [Mass fraction] 99 % [facility] Work Phone: 09-21-2022 20:59-0400 Systolic blood pressure 141 mm[Hg] [facility] Work Phone: 09-21-2022 18:50-0400 Body height 172.72 cm [facility] Work Phone: 09-21-2022 18:50-0400 Body mass index (BMI) [Ratio] 22 kg/m2 [facility] Work Phone: 09-21-2022 18:50-0400 Body temperature 97.4 [degF] [facility] Work Phone: 09-21-2022 18:50-0400 Body weight 65.77 kg [facility] Work Phone: Encounters Encounter Date Encounter Type Care Provider Facility Start: 05-11-2025 End: 05-11-2025 Emergency department patient visit No Primary Care Physician -Emergency Department Work Phone: Start: 01-21-2025 End: 01-21-2025 Emergency department patient visit Zachary Veronica DO Work Phone: [facility] EMERGENCY DEPT Comment on above: Open dislocation of finger, initial encounter (Primary Dx) Start: 01-21-2025 End: 01-21-2025 Emergency department patient visit Dr. Tavo Vargas DO -Emergency Department Work Phone: Start: 09-01-2023 End: 09-01-2023 Emergency department patient visit [facility]-Emergency Department Work Phone: Start: 09-21-2022 End: 09-21-2022 Emergency department patient visit [facility]-Emergency Department Procedures Date Procedure Procedure Detail Performing Clinician Start: 05-11-2025 Estimated creatinine clearance No Primary Care Physician Start: 05-11-2025 X-ray of chest, PA a nd lateral views No Primary Care Physician Start: 01-21-2025 RF Less than 1 hour Marielle kaite Liu MD Work Phone: Start: 01-21-2025 Radex hand minimum 3 views Zachary Veronica DO Work Phone: Start: 01-21-2025 Plain X-ray of finger N o Primary Care Physician Start: 09-21-2022 Ultrasound of scrotu m with Doppler and color flow imaging Plan of Treatment Date Care Activity Detail Author Start: 2077 RSV Immunization for Adults (1 - 1-dose 75+ series) RSV Immunization for Adults (1 - 1-dose 75+ series) [facility] Start: 2052 Zoster Vaccines (1 of 2) Zoster Vaccines (1 of 2) [facility] Start: 05-11-2025 [facility] Start: 05-11-2025 [facility] Start: 01-21-2025 [facility] Start: 08-02-2024 COVID-19 Vaccine ( season) COVID-19 Vaccine ( season) [facility] Start: 08-02-2024 Influenza vaccination Influenza Vaccine (#1) [facility] Start: 07-22-2024 DTaP/Tdap/Td Vaccines (7 - Td or Tdap) DTaP/Tdap/Td Vaccines (7 - Td or Tdap) [facility] Start: 09-01-2023 [facility] Start: 2020 Hepatitis C screening Hepatitis C Screening [facility] Start: 2015 Varicella vaccination Varicella Vaccines (1 of 2 - 13+ 2-dose series) [facility] Start: 2014 Depression Screening Depression Screening [facility] Start: 2002 HIV screening HIV Screening [facility] Patient Education [facility] Work Phone: Patient referral [facility] Work Phone: Immunizations Immunization Date Immunization Notes Care Provider Fa cility 01-21-2025 tetanus toxoid, redu kelby diphtheria toxoid, and acellular pertussis vaccine, adsorbed No Primary Care Physician [facility] 01-10-2012 influenza virus vaccine, unspecified formulation Zachary Veronica DO Work Phone: [facility] Payers Date Payer Category Payer Self-pay [id number] 2025 Self-pay 2025 Private Health Insurance [id number] Unknown [id number] Unknown [id number] Unknown [facility] [id number] Unknown [id number] Unknown [id number] Social History Date Type Detail Facility Start: 09-21-2022 End: 09-01-2023 Tobacco smoking status PRIS Unknown if ever smoked [facility] Start: 2000 Sex Assigned At Male [facility] Start: 2000 Sex assigned at Not on file [facility] Start: 01-21-2025 Sex Male (finding) [facility] Gender identity Not on file [facility] Start: 05-11-2025 [facility] Mental Status Date Assessment Result Facility 05-11-2025 Cognitive function Level Of Cons ciousness Awake;Alert;Appropriate;Follow s Commands [facility] Work Phone: Clinical Notes 01-21-2025 to 05-11-2025 Discharge InstructionsZachary Veroniac, DO - 01/21/2025 5:40 PM ESTZachary Veronica, DO - 01/21/2025 5:40 PM EST Note Date & Type Note Facility 05-11-2025 Discharge summary [facility] 05-11-2025 Radiology Diagnostic study note [facility] Imaging Services [address] [place] [address] Chest PA and Lateral MR#: [id number] Acct: [id number] Name: JUANJO DURHAM Rep #: [id number] : 2000 M 24 From: Rachid Steel MD PCP: Care Physician,No Primary Status: REG ER Study:Chest PA and Lateral Date of Exam: 05/11/25 Exam# [id number] Ordering Dr: Consuelo Hendrickson DO PROCEDURE: CHEST PA AND LATERAL 05/11/2025 REASON FOR EXAM: CHEST PAIN, RIGHT SIDE TECHNIQUE: Frontal and lateral views of the chest. COMPARISON: None. FINDINGS: The lungs are expanded. There is no demonstrated parenchymal abnormality. There is no demonstrated pleural abnormality. Normal heart and pericardium. Normal mediastinum and nathalie. Normal visualized pulmonary arteries. Normal visualized aortic arch and descending thoracic aorta. Normal visualized thoracic spine. Normal visualized ribs, clavicles, and shoulders. There is no demonstrated abnormality of the visualized soft tissue structures ofthe upper abdomen. RAD/Chest PA and Lateral IMPRESSION: No radiographic evidence of an acute abnormality. Reading Location: [place] [address] CC: Dr. Zachary Hendrickson DO; No Primary Care Physician ~ Gas System Operator: Signed [facility] 01-21-2025 Hospital Discharge instructions Citlaly Liu MD - 01/21/2025 9:03 [...] on the skin. -Follow-up outpatient with Dr. cMdaniel tomorrow, 01/22. The office contact information is provided in your paperwork. -Take medications as prescribed by the hospital doctors documented in this encounter [facility] 01-21-2025 Emergency department Note Images from the original note were not included. 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 Pt was seen at [facility] and sent in for care. HISTORY OF [...] caught on a knot. Initially presented to [facility] who performed x-ray, gave tetanus Ancef and performed a digital nerve block, spoke with Dr. Mcdaniel with Ortho hand who recommended ED to ED transfer. Nursing Notes were reviewed. REVIEW OF SYSTEMS 14 systems reviewed and otherwise acutely negative except as in the [place] [address]. PAST MEDICAL HISTORY No past medical history [...] the third PIP Discussions with other clinicians: Shells Inspector orthopedic surgery Chronic conditions impacting care: Social [...] dc PATIENT REFERRED TO: Zhang Mcdaniel MD [address] [facility] [address] [facility] [address] Follow up Call first thing in [...] Veronica DO 01/21/252128 documented in this encounter [facility] 01-21-2025 Physician Emergency department Note Images from the original note were not included. 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 Pt was seen at [facility] and sent in for care. HISTORY OF [...] caught on a knot. Initially presented to [facility] who performed x-ray, gave tetanus Ancef and performed a digital nerve block, spoke with Dr. Mcdaniel with Ortho hand who recommended ED to ED transfer. Nursing Notes were reviewed. REVIEW OF SYSTEMS 14 systems reviewed and otherwise acutely negative except as in the [place] [address]. PAST MEDICAL HISTORY No past medical history [...] the third PIP Discussions with other clinicians: Shells Inspector orthopedic surgery Chronic conditions impacting care: Social [...] dc PATIENT REFERRED TO: Zhang Mcdaniel MD [address] [facility] [address] [facility] [address] Follow up Call first thing in [...] Emergency Medicine Provider Zachary Veronica DO 01/21/252128 [facility] Discharge summary Note Date/Time May 11, 2025 5:10am [facility] Medical Records Department [address] [place] [address] Emergency Department Summary 05/11/25 MR#: [id number] Acct: [id number] Name: JUANJO DURHAM Rep #:[id number] : 2000 24 From: Zachary Hendrickson DO PCP: Care Physician,No Primary Status :REG ER Location: ED HPI History of Present Illness Chief Complaint: Chest Other Narrative Narrative: Patient is a 24-year-old male with a past medical history of ADHD who presented to the emergency department for concern of chest discomfort. Patient states that he woke up with a pain/popping sensation in the right side of his chest he was concerned therefore he came here for further evaluation management. He states that he has not had anything this happen before. He states that he worksout on a regular basis and does not have worsening chest pain. Patient denies any recent travel history denies any history of blood clots. [facility] Medical History ADHD Home Medications ?Medication ?Instructions ?Recorded ?Last Taken ?Type NK 01/21/25 Unknown History Allergy/AdvReac Type Severity Reaction Status Date / Time No Known Allergies Allergy Verified 05/11/25 03:49 Surgical History S/P hernia surgery Social History household members: none current occupational status: employed Smoking Status: Never smoker substance use type: does not use ROS ROS ED ROS Narrative Constitutional: Denies fevers, chills, headaches Eyes: Denies change in vision double vision blurry vision Cardiovascular: Complains of right-sided chest discomfort as noted above denies palpitations Respiratory: Denies coughing wheezing shortness of breath Abdomen: Denies abdominal pain, nausea vomiting : Denies urinary symptoms Neurological: Denies numbness, weakness, and tingling Musculoskeletal: Denies back pain Skin: Denies any rashes or lesions EXAM Physical Exam Narrative Exam Narrative: General: Patient lying in bed rest comfortably did not appear to be acute distress Head: Atraumatic, normocephalic Eyes: PERRL bilaterally, EOMI bilaterally, no conjunctival injection noted Neck: Soft, supple, trachea midline Cardiovascular: Regular rate and rhythm no murmurs gallops rubs noted Respiratory: Clear to auscultation bilaterally Abdomen: Soft, nondistended, nontender to palpation Extremities: +5/5 strength noted in the bilateral upper and lower extremities Neurological: Patient following commands knew that he was at [facility] year is 2024 Skin: Warm, dry, intact no rashes or lesions noted Const Vital Signs: 05/11/25 03:50 05/11/25 04:06 Temperature 98.3 F Temperature Source Oral Pulse Rate 76 Respiratory Rate 16 Blood Pressure 155/101 H Blood Pressure Mean 119 Pulse Ox 98 Oxygen Delivery Method Room Air Room Air MDM MDM MDM Narrative Medical decision making narrative: Patient is a 24-year-old male who presents to the emergency department the chiefcomplaint of right-sided chest discomfort. On the differential diagnose includes but not limited to pneumothorax, PE however he is low risk based on revised Schley score, anxiety, musculoskeletal strain. Once workup is obtained reviewed he will be reevaluated Schley Score (Revised) for Pulmonary Embolism from [email or web address] on 05/11/2025 All calculations should be rechecked by clinician prior to use RESULT SUMMARY: 3 points Low risk group: 7-9% incidence of PE from several studies. INPUTS: Age >65 ?> 0 = No Previous DVT or PE ?> 0 = No Surgery (under general anesthesia) or lower limb fracture in past month ?> 0 = No Active malignant condition ?> 0 = No Unilateral lower limb pain ?> 0 = No Hemoptysis ?> 0 = No Heart rate ?> 3 = 75-94 Pain on lower limb palpation and unilateral edema ?> 0 = No Patient CBC reviewed showed no evidence leukocytosis white blood count normal at8, hemoglobin is 13.9, plate count was noted be 227. Patient sodium is 136, potassium normal at 3.7, creatinine was 1.18. Patient's AST and ALT are 25 and 20 respectively. Patient's EKG showed sinus rhythm with a rate of 62 bpm with evidence of benign early repolarization. Patient chest x-ray reviewed by myselfand by radiology showed no acute cardiopulmonary processes. Discussed the results with the patient he would like to go home at this point intime. He was noted to have elevated blood pressure in the emergency department I question him on supplementation with working out and he states that he is taking supplements. He was advised to follow-up with a primary care doctor and keep a close eye on his blood pressure. He was encouraged return with worseningsymptoms and concerns. He was advised to rotate Tylenol and ibuprofen [id number] for pain control. He is agreeable this plan all question concerns answered he is discharged home in stable condition. Lab Data Labs: Laboratory Results - last 24 hr 05/11/25 04:14 WBC 8.0 RBC 4.62 Hgb 13.9 Hct 39.6 L MCV 85.7 MCH 30.1 MCHC 35.1 RDW Std Deviation 37.3 RDW Coeff of Srinivas 12.1 Plt Count 227 MPV 10.5 Immature Gran % (Auto) 0.400 Neut % (Auto) 53.8 Lymph % (Auto) 35.5 [place] % (Auto) 8.6 Eos % (Auto) 1.1 Baso % (Auto) 0.6 Absolute Neuts (auto) 4.3 Absolute Lymphs (auto) 2.84 Nucleated RBC % 0 Sodium 136 Potassium 3.7 Chloride 102 Carbon Dioxide 21.5 Anion Gap 13 BUN 27 H Creatinine 1.18 Estim Creat Clear Calc 95.00 Est GFR (MDRD) Non-Af 89 BUN/Creatinine Ratio 23.1 H Glucose 93 Calcium 9.5 Total Bilirubin 0.39 Direct Bilirubin 0.19 AST 25 ALT 28 Alkaline Phosphatase 99 Total Protein 7.2 Albumin 4.5 Globulin 2.7 Radiography Diagnostic Testing: Clinical Impression(s) from Imaging Studies Chest X-Ray 05/11/25 04:06 IMPRESSION: No radiographic evidence of an acute abnormality. Reading Location: [place] [address] Discharge Plan Triage Chief Complaint: Chest Other ED Provider: Zachary Hendrickson Dx/Rx/DC Orders Clinical Impression: Chest pain Prescriptions: No Action NK Primary Care Provider: Care Physician,No Primary Referrals: Care Physician,No Primary [Primary Care Provider] - Adriana Garza Sam, PAY CLERK-C [[facility]] - Activity Restrictions/Additional Instructions: Follow-up with your doctor that you referred to in the outpatient setting. Keepa close eye on your blood pressure. Return with worsening symptoms any concerns. Your blood work here today did not show any acute findings and your chest x-ray was normal as well. Your EKG was normal. Print Language: Palauan Disposition Disposition: Home, Self Care What to do if you have Problems For any increased pain, shortness of breath, bleeding, nausea or vomiting, chestpain, or any unexpected problems, contact your Primary Care Provider. Call [facility] ([phone]) or report to the closest Emergency Room. Call 911 if necessary. 05/11/25 0510 <Electronically signed by Zachary Hendrickson DO> Cosigner Signature (if applicable): CC: No Primary Care Physician ~ Signed [facility] Work Phone: Evaluation noteNo assessment information available [facility] Work Phone: Evaluation note* Diagnosis Open dislocation of finger, initial encounter- Primary [facility] Discharge instructions Additional Instructions I would recommend taking [id number] Maalox or Pepto-Bismol as needed. I would also recommend taking Pepcid over the next 3 to 5 days. If worsening or new symptoms [facility] Work Phone: Hospital Discharge instructions Additional Instructions Follow-up with your doctor that you referred to in the outpatient setting. Keep a close eye on your blood pressure. Return with worsening symptoms any concerns. Your blood work here today did not show any acute findings and your chest x-ray was normal as well. Your EKG was normal.[facility] Work Phone: Reason for referral (narrative)No reason for referral information [facility]WMer[facility] Work Phone: Summary Purpose Family History No Family History Records FoundNo Family History Records FoundNo Family History Records Found Advance Directives No Advanced Directives Records Found Advance Directive Response Recorded Date/ Time Living Will No September 21 7:57pm Power of Creel Clerk No September 21, 2022 7:57pm Advance Directive Response Recorded Date/ Time Living Will No September 01 8:06am Power of Creel Clerk No September 01 023 8:06am Advance Directive Response Recorded Date/ Time Living Will No January 21 025 1:57pm Do you have a Healthcare Power of Creel Clerk? No January 21, 2025 1:57pm Do you have a Healthcare Power of Creel Clerk? No May 11, 2025 3:52am Chief Complaint and Reason for Visit Chief Complaint MALE PAIN Chief Complaint STOMACH BURNING Chief Complaint Admit Date upper ext January 21, 2025 12:50pm popping feeling in chest May 11, 2025 3:48am Additional Source Comments (unrecognized sect ion and content) No Status Records FoundNo Status Records FoundNo Status Records Found INFORMATION SOURCE (unrecogn ized section and content) DATE CREATED AUTHOR 06/21/2020 [facility] DATE CREATED AUTHOR AUTHOR'S ORGANIZ ATION 01/31/2025 [facility] DATE CREATED AUTHOR AUTHOR'S ORGANIZ ATION 05/19/2025 [facility] Goals (unrecognized section and content) Goals may be documented in a n alternate sectionGoals may be documented in an alternate sectionGoals may be documented in an alternate section Care Teams (unrecognized sec tion and content) Team Status: Active Member Role Status Dates Dr. Juan Francisco Bui MD Family Provider Active No Primary Care Physician Primary Care Provider Active Team Status: Inactive Member Role Status Dates No Primary Care Physician Primary Care Provider Active Dr. Enrique Love , DO Emergency Provider Active Team Status: Active Member Role Status Dates No Primary Care Physician Primary Care Provider Active Team Status: Inactive Member Role Status Dates No Primary Care Physician Primary Care Provider Active Start: January 21, 2025 End: January 21, 2025 Dr. Tavo Vargas DO Attending Provider Active Start: January 21, 2025 End: January 21, 2025 Dr. Tavo Vargas DO Referring Provider Active Start: January 21, 2025 End: January 21, 2025 Dr. Tavo Vargas DO Emergency Provider Active Start: January 21, 2025 End: January 21, 2025 Team Status: Inactive Member Role Status Dates No Primary Care Physician Primary Care Provider Active Start: May 11, 2025 End: May 11, 2025 Dr. 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 Pt was seen at [facility] and sent in for care. Scheduled Active and Recently Administ ered Medications (unrecognized section and content) Medication Order 01/19/2025 01/20/2025 01/21/2025 bacitracin ointment Topical, 3 times daily, First dose on Mayra 01/21/25 at 2100 2000 (Given - Provid er: Cata Aguilar [...] tablet, Oral, Once, On Mayra 01/21/25 at 211, For 1 dose, Maximum dose of acetaminophen is 4000 mg from all sources in 24 hours. 2113 (Given - Provid er: Cata Aguilar RN) [...] BE BASED ON THE PRIMARY CLINICAL RECORDS. [facility] [employer] [facility]. provides no warranty or guarantee of the accuracy or completeness of information in this document.
--- NOTE | 2025-07-18 20:33 | EX.ED.DYSGE1 ---
HPI History of Present Illness Chief Complaint: Fever Informant: patient Onset/Context/Timing Onset: Days (5) Context: Gradual Onset Timing: Continuous Quality: Aching Location: Generalized Worsened by: Nothing Relieved by: Tylenol, Advil Narrative Narrative: Patient presents with a fever that has been constant for the past 5 days. Patient states it is gradually gotten worse. Patient states he gets better with Tylenol and Advil. Patient states he has been having decreased appetite and has been feeling lightheaded over the past couple days. Patient admits to general myalgias. Patient also admits to some increasing sleep over the past few days. Patient states his temperature at home went up to 104.5. Patient also admits to a sore throat. Patient denies any cough. Patient admits to some nausea but denies any vomiting. Patient admits to headache and some generalized weakness. [facility] Medical History ADHD Home Medications ?Medication ?Instructions ?Recorded ?Last Taken ?Type azithromycin 250 mg tablet 250 mg PO DAILY #4 TABLETS 07/18/25 Unknown Rx Allergy/AdvReac Type Severity Reaction Status Date / Time No Known Allergies Allergy Verified 07/18/25 18:52 Family History no significant family his Surgical History S/P hernia surgery Social History household members: none current occupational status: employed Smoking Status: Never smoker substance use type: does not use ROS ROS ED Constitutional Constitutional ED: Reports fever(s); Denies chills Eyes Eyes: Denies blurry vision or change in vision ENT ENT ED: Reports sore throat; Denies rhinorrhea Cardiovascular Cardiovascular: Reports chest pain; Denies palpitations Respiratory/Chest Respiratory/Chest: Denies cough or dyspnea Gastrointestinal Gastrointestinal: Reports nausea; Denies vomiting Genitourinary Genitourinary ED: Denies dysuria or hematuria Musculoskeletal Musculoskeletal: Reports myalgias Integumentary Denies abscess or rash Neurologic Neurologic: Reports headache(s) and weakness Allergic/Immunologic Allergic/Immunologic ED: Denies mouth swelling or urticaria EXAM Physical Exam Const Vital Signs: 07/18/25 18:52 07/18/25 18:52 07/18/25 20:29 Temperature 101 F H Temperature Source Oral Pulse Rate 116 H 114 H Respiratory Rate 20 H Respiratory Effort Normal Non-Labored Respiratory Pattern Normal Blood Pressure 135/78 H Blood Pressure Mean 97 Pulse Ox 99 Oxygen Delivery Method Room Air Positive well nourished and well developed General Appearance ED: well developed and NAD HEENT Reports moist mucous membranes Neck supple and no JVD Resp normal respiratory effort Auscultation: diminished lung sounds Cardio regular rate and regular rhythm GI non-tender and non-distended Palpation: soft Extremity normal to inspection General Extremety ED: Negative for edema or tenderness General Extremity: Negative for edema Neuro oriented x3, CN's II-XII intact bilaterally and no sensory deficits noted Sensorium / Orientation: alert Motor Exam: strength 5/5 throughout Psych mental status grossly normal MDM MDM MDM Narrative Medical decision making narrative: Differential diagnosis includes pneumonia, viral illness, urinary tract infection, bronchitis, sepsis, dehydration, and electrolyte abnormality. Chest x-ray will be obtained to assess for pneumonia or bronchitis. CBC will be obtained to assess for leukocytosis and anemia. Basic metabolic profile will be obtained to assess for electrolyte abnormality and renal function. Serum lactate will be obtained to assess for sepsis. Urinalysis will be obtained to assess for urinary tract infection and hematuria. PT with INR and PTT will be obtained to assess for coagulopathy. COVID-19, influenza, and RSV PCR will be obtained to assess for viral illness. Blood culture will be obtained to assess for sepsis. Lab Data Lab results narrative: CBC was reviewed and was essentially within normal limits. Basic metabolic profile was reviewed and was within normal limits. PT with INR and PTT were reviewed and were essentially within normal limits. Serum lactate was reviewed and was less than 1.0. Urinalysis was reviewed. There is no evidence of urinary tract infection or hematuria. Radiography Chest X-Ray - ED: 2 View, Read by ED Physician, Read by Radiologist and Right Infiltrate Diagnostic Testing: PA and lateral chest x-ray was obtained. There are 2 views. On my independent interpretation, lung hinson showed a right upper lobe infiltrate. There is normal cardiac silhouette. Bony thorax is normal. There is no acute process noted. Radiologist also interpreted the x-ray and agrees. Treatment and Re-Evaluation :: Patient was given IV fluids and Tylenol. Patient was given a dose of Zithromax here. Patient was advised of his findings. Patient was given a prescription for Zithromax. Patient was instructed to drink plenty of fluids. Patient was instructed to take Tylenol or ibuprofen as needed for fevers and pain. Patient was instructed to follow-up with his primary care physician in 5 to 7 days. Patient understood and was agreeable with the plan. All questions were answered. Discharge Plan Triage Chief Complaint: Fever ED Provider: Fredy Pagan Dx/Rx/DC Orders Clinical Impression: Pneumonia, Fever Instructions: ED Fever Control (Adult), ED Pneumonia (Adult) Prescriptions: New azithromycin 250 mg tablet 250 mg PO DAILY Qty: 4 0RF Primary Care Provider: Care Physician,No Primary Referrals: Skyler Liao DO [Med Staff - Software Implementation Project Manager] - 5-7 Days Care Physician,No Primary [Primary Care Provider] - Print Language: Kyrgyz Disposition Disposition: Home, Self Care
[2025-07-18 20:52] VITALS: BP 129/82; PULSE 101; O2SAT 100
[2025-07-18 21:02] LABS: Mucous, Urine 0 SEEN /hpf (<or=2+)
[2025-07-18 21:03] LABS: Hematocrit 42.0 % (40-54); Hemoglobin 14.4 g/dL (13.0-16.5); Immature Granulocytes Count 0.020 X10^3/uL (0.0-0.0); Mean Corp Hgb Conc 34.3 g/dL (32-36); Mean Corpuscular Volume 87.9 fL (80-94); Mean Platelet Vol. 10.5 fl (6.2-12.0); NRBC Flagged by Analyzer 0 % (0-5); Platelet Count 197 K/mm3 (150-450); RBC Distribution Width CV 11.9 % (11.6-14.6); RBC Distribution Width SD 38.4 fl (35.1-43.9); Red Blood Count 4.78 M/mm3 (4.6-6.2); White Blood Count 7.9 K/mm3 (4.4-11.0)
[2025-07-18] MEDS: 0.9% Normal Saline (1000mL) 1,000 ML 1000 ML IV (21:04)
[2025-07-18 21:10] LABS: Color, Urine Yellow (Yellow); Glucose, Dipstick Normal (Normal); Ketone-Dipstick 15 mg/dl (Negative); Leukocyte Esterase-Dipstick Negative /ul (Negative); Nitrite-Dipstick Negative (Negative); Occult Blood-Urine Negative /ul (Negative); Protein-Dipstick 30 mg/dl (Negative); Specific Gravity, Urine 1.020 (1.002-1.030); Urine Bilirubin Dipstick Negative (Negative)
[2025-07-18 21:12] LABS: Prothrombin Time (Protime)PT. 14.2 SECONDS (11.7-14.9)
--- NOTE | 2025-07-18 21:12 | RAD_ITS ---
PROCEDURE: CHEST PA AND LATERAL 07/18/2025 REASON FOR EXAM: FEVER TECHNIQUE: CHEST PA AND LATERAL COMPARISON: 05/11/2025 FINDINGS: Lungs/Pleura: Airspace consolidation in the medial right perihilar region compatible with pneumonia. Left lung is clear. No pneumothorax or pleural effusion. Heart/Mediastinum: Normal in size. Bones/Soft tissues: Unremarkable. RAD/Chest PA and Lateral IMPRESSION: Right upper lobe pneumonia. No pleural effusions. Reading Location: [id number]
[2025-07-18 21:15] LABS: Red Blood Cells-Urine 0-5 SEEN /hpf (0-5); Squamous Epithelial Cells - UA 0-5 SEEN /hpf (0-5)
[2025-07-18 21:23] VITALS: BP 129/82; PULSE 102; RESP 18; TEMP 39.6; O2SAT 98
[2025-07-18 21:24] LABS: Anion Gap 15 (5-15); BUN 16 mg/dL (4-19); BUN/Creat Ratio 15.0 RATIO (10-20); Calcium,Total 9.3 mg/dL (7.6-11.0); Carbon Dioxide 22.4 mmol/L (21.0-32.0); Chloride 98 mmol/L (98-108); Estimated Creatinine Clearance 104.77 ml/min (50-250); Glucose 95 mg/dL (70-99); Potassium 4.2 mmol/L (3.3-5.1)
[2025-07-18 21:52] LABS: Partial Thromboplast Time 21.3 Seconds (24.1-36.2)
[2025-07-18 21:59] VITALS: TEMP 38.1
[2025-07-18 22:00] VITALS: BP 125/72; PULSE 102; RESP 16; TEMP 38.1; O2SAT 97
[2025-07-18 22:08] VITALS: BP 125/72; PULSE 102; RESP 16; TEMP 38.1; O2SAT 97
== END 2025-07-18 22:34 | disposition home or self-care (01) ==
PROVIDERS: Emergency Provider Emergency Medicine; Visit Provider Emergency Medicine
DX: J18.9 Pneumonia, unspecified organism (principal)
CPT/HCPCS: 71046; 80048; 81001; 83605; 85025; 85610; 85730; 87040; 87631; 96360; 99282; A4216